=== PATIENT | male | born 1955 | race Caucasian/White ===

== ENCOUNTER 2018-02-08 18:52 | Emergency (ER) | payer MEDICARE, MEDICAID ==
[~2018-02-08] VITALS: Ht 175.3 cm; Wt 115.0 kg
[~2018-02-08 18:52] MED LIST: ACID1TAB7 PO; CEFD300C37 PO; CLON2TAB16 PO; CYAN10005 PO; FLUO40CA2 PO; FLUO60TA PO; FOLI-17 PO; GABA-827 PO; INDO25CA5 PO; LEVO750T26 PO; METR500T PO; METR500T8 PO; MULT1TAB60 PO; OMEP-110 PO; PIMO1TAB PO; PRED10TA PO; SUCR1TAB33 PO; TAMS0.4C2 PO; THIA100T67 PO; VENL75TA PO
[2018-02-08 18:54] VITALS: BP 142/85
[2018-02-08] MEDS ORDERED: PLEASE ENTER HEIGHT AND WEIGHT MC SCH (19:00)
[2018-02-08] MEDS ORDERED: MORPHINE SULFATE 4 MG/ML, 1ML IVPush PRN (19:00)
[2018-02-08] MEDS ORDERED: SODIUM CHLORIDE FLUSH 10ML SYR IVF ONE (19:00)
[2018-02-08] MEDS ORDERED: ONDANSETRON 2MG/ML, 2ML IVPush ONE (19:00)
[2018-02-08] MEDS ORDERED: ONDANSETRON 2MG/ML, 2ML ONE (19:16)
[2018-02-08] MEDS ORDERED: MORPHINE SULFATE 4 MG/ML, 1ML ONE (19:17)
[2018-02-08 19:21] LABS: BASOPHILS # (AUTO) 0.04 x10^3/uL (0-0.1); BASOPHILS % (AUTO) 1 % (0-1); EOSINOPHILS # (AUTO) 0.17 x10^3/uL (0-0.4); EOSINOPHILS % (AUTO) 3 % (1-7); LYMPHOCYTES # (AUTO) 1.91 x10^3/uL (1-3.4); LYMPHOCYTES % (AUTO) 31 % (22-44); MD NO; MEAN CORPUSCULAR HEMOGLOBIN 36.6 pg (27.5-34.5); MEAN CORPUSCULAR HGB CONC 34.3 g/dL (33.2-36.2); MEAN CORPUSCULAR VOLUME 106.7 fL (81-97); MEAN PLATELET VOLUME 7.4 fL (7.4-10.4); MONOCYTES # (AUTO) 0.42 x10^3/uL (0.2-0.8); MONOCYTES % (AUTO) 7 % (2-9); NEUTROPHILS # (AUTO) 3.57 x10^3/uL (1.8-6.8); NEUTROPHILS % (AUTO) 59 % (42-75); PLATELET COUNT 231 x10^3/uL (130-400); RED BLOOD COUNT 3.96 x10^6/uL (4.38-5.82); RED CELL DISTRIBUTION WIDTH 14.8 % (9.4-14.8)
[2018-02-08 19:30] LABS: ALBUMIN 3.5 g/dL (3.4-5.0); ANION GAP 9 mmol/L (5-15); CHLORIDE 104 mmol/L (98-107)
[2018-02-08 19:33] LABS: ALANINE AMINOTRANSFERASE 31 U/L (12-78); ALKALINE PHOSPHATASE 58 U/L (45-117); BILIRUBIN,TOTAL 0.3 mg/dL (0.2-1.0); CREATININE 0.84 mg/dL (0.7-1.3); TOTAL PROTEIN 7.1 g/dL (6.4-8.2)
== END 2018-02-08 20:42 | disposition home or self-care (01) ==
LOC: ED 20:35
DX: K85.00 Idiopathic acute pancreatitis without necrosis or infection (principal); K59.00 Constipation, unspecified; I50.9 Heart failure, unspecified; G89.29 Other chronic pain; F42.8 Other obsessive-compulsive disorder; Z90.89 Acquired absence of other organs; Z90.49 Acquired absence of other specified parts of digestive tract; Z87.891 Personal history of nicotine dependence
CPT/HCPCS: 36415; 74021; 80053; 83605; 83690; 85025; 96374; 96375; 99285; J2405

== ENCOUNTER 2018-02-11 16:32 | Emergency (ER) | payer MEDICARE, MEDICAID ==
[~2018-02-11] VITALS: Ht 180.3 cm; Wt 107.8 kg
[2018-02-11 16:57] LABS: BASOPHILS # (AUTO) 0.02 x10^3/uL (0-0.1); BASOPHILS % (AUTO) 0 % (0-1); EOSINOPHILS # (AUTO) 0.13 x10^3/uL (0-0.4); EOSINOPHILS % (AUTO) 2 % (1-7); LYMPHOCYTES # (AUTO) 1.87 x10^3/uL (1-3.4); LYMPHOCYTES % (AUTO) 30 % (22-44); MD NO; MEAN CORPUSCULAR HEMOGLOBIN 36.2 pg (27.5-34.5); MEAN CORPUSCULAR HGB CONC 34.2 g/dL (33.2-36.2); MEAN CORPUSCULAR VOLUME 105.8 fL (81-97); MEAN PLATELET VOLUME 7.4 fL (7.4-10.4); MONOCYTES # (AUTO) 0.38 x10^3/uL (0.2-0.8); MONOCYTES % (AUTO) 6 % (2-9); NEUTROPHILS % (AUTO) 62 % (42-75); PLATELET COUNT 246 x10^3/uL (130-400); RED BLOOD COUNT 4.11 x10^6/uL (4.38-5.82); RED CELL DISTRIBUTION WIDTH 14.6 % (9.4-14.8)
[2018-02-11 17:17] LABS: ALANINE AMINOTRANSFERASE 35 U/L (12-78); ALBUMIN 3.4 g/dL (3.4-5.0); ANION GAP 8 mmol/L (5-15); CALCIUM 7.9 mg/dL (8.5-10.1); CHLORIDE 106 mmol/L (98-107); CREATININE 0.85 mg/dL (0.7-1.3)
[2018-02-11 17:19] LABS: ALKALINE PHOSPHATASE 67 U/L (45-117); BILIRUBIN,TOTAL 0.2 mg/dL (0.2-1.0); TOTAL PROTEIN 7.2 g/dL (6.4-8.2)
[2018-02-11] MEDS ORDERED: ONDANSETRON ODT 4 MG ONE (19:54)
[2018-02-11] MEDS ORDERED: OXYcodone/APAP 5/325MG TABLET ONE (19:54)
[2018-02-11] MEDS ORDERED: ONDANSETRON ODT 4 MG PO ONE (20:00)
[2018-02-11] MEDS ORDERED: OXYcodone/APAP 5/325MG TABLET PO ONE (20:00)
[2018-02-11 20:21] LABS: MICROSCOPIC NOT IND
[2018-02-11 20:26] LABS: CULTURE INDICATED? NO
[2018-02-11 20:49] VITALS: BP 132/89
== END 2018-02-11 21:05 | disposition home or self-care (01) ==
LOC: ED 20:15
DX: R10.84 Generalized abdominal pain (principal); G89.11 Acute pain due to trauma; G89.29 Other chronic pain; Z90.49 Acquired absence of other specified parts of digestive tract; M19.90 Unspecified osteoarthritis, unspecified site
CPT/HCPCS: 36415; 80053; 81003; 83690; 85025; 99284; Q0162

== ENCOUNTER 2018-03-29 23:57 | Observation (INO) | payer MEDICARE, MEDICAID ==
[~2018-03-29] VITALS: Ht 180.3 cm; Wt 104.0 kg
[~2018-03-29 23:57] MED LIST changes: +CLON0.5T11 PO; +CLON1TAB4 PO; +CLON2TAB9 PO; +FLUO20CA8 PO; +GABA300C10 PO; +GUAN1TAB PO; +IPRA3AMP30 NPPB; +TRAZ-136 PO
[2018-03-30] MEDS ORDERED: LORazepam 1MG TABLET ONE (00:26)
[2018-03-30] MEDS ORDERED: LORazepam 1MG TABLET PO ONE (00:30)
[2018-03-30 00:48] LABS: BASOPHILS # (AUTO) 0.04 x10^3/uL (0-0.1); BASOPHILS % (AUTO) 1 % (0-1); EOSINOPHILS # (AUTO) 0.16 x10^3/uL (0-0.4); EOSINOPHILS % (AUTO) 2 % (1-7); LYMPHOCYTES # (AUTO) 1.68 x10^3/uL (1-3.4); LYMPHOCYTES % (AUTO) 21 % (22-44); MD NO; MEAN CORPUSCULAR HEMOGLOBIN 35.9 pg (27.5-34.5); MEAN CORPUSCULAR HGB CONC 33.7 g/dL (33.2-36.2); MEAN CORPUSCULAR VOLUME 106.5 fL (81-97); MEAN PLATELET VOLUME 7.9 fL (7.4-10.4); MONOCYTES # (AUTO) 0.44 x10^3/uL (0.2-0.8); MONOCYTES % (AUTO) 6 % (2-9); NEUTROPHILS # (AUTO) 5.77 x10^3/uL (1.8-6.8); NEUTROPHILS % (AUTO) 71 % (42-75); PLATELET COUNT 245 x10^3/uL (130-400); RED BLOOD COUNT 4.35 x10^6/uL (4.38-5.82); RED CELL DISTRIBUTION WIDTH 13.2 % (9.4-14.8)
[2018-03-30 00:55] LABS: ALBUMIN 3.4 g/dL (3.4-5.0); ANION GAP 9 mmol/L (5-15); CALCIUM 8.1 mg/dL (8.5-10.1); CHLORIDE 103 mmol/L (98-107)
[2018-03-30 00:59] LABS: ALANINE AMINOTRANSFERASE 35 U/L (12-78); ALKALINE PHOSPHATASE 75 U/L (45-117); BILIRUBIN,TOTAL 0.4 mg/dL (0.2-1.0); CREATININE 0.83 mg/dL (0.7-1.3)
[2018-03-30 01:00] LABS: SALICYLATE LEVEL < 1.7 mg/dL (2.8-20.0)
[2018-03-30 01:01] LABS: ACETAMINOPHEN < 2 mcg/mL (10-30)
[2018-03-30 01:21] LABS: MICROSCOPIC NOT IND
[2018-03-30 01:24] LABS: CULTURE INDICATED? NO
[2018-03-30 01:33] LABS: AMPHETAMINE SCREEN, URINE Negative (Negative); BARBITURATE SCREEN, URINE Negative (Negative); BENZODIAZEPINE SCREEN, URINE Positive (Negative); CANNABINOID SCREEN, URINE Negative (Negative); COCAINE SCREEN, URINE Negative (Negative); METHADONE SCREEN, URINE Negative (Negative); OPIATE SCREEN, URINE Negative (Negative)
[2018-03-30] MEDS ORDERED: LORazepam 1MG TABLET PO PRN (05:30)
[2018-03-30] MEDS ORDERED: ZOLPIDEM 5MG TABLET PO PRN (05:30)
[2018-03-30] MEDS ORDERED: CYCLOBENZAPRINE 10 MG TABLET PO PRN (05:30)
[2018-03-30] MEDS ORDERED: BENZTROPINE 1 MG/ML, 2 ML IM PRN (05:30)
[2018-03-30] MEDS ORDERED: DOCUSATE 100 MG CAPSULE PO PRN (05:30)
[2018-03-30] MEDS ORDERED: ZIPRASIDONE 20 MG INJ IM PRN (05:30)
[2018-03-30] MEDS ORDERED: ONDANSETRON ODT 4 MG PO PRN (05:30)
[2018-03-30] MEDS ORDERED: QUETIAPINE 25MG TABLET PO PRN (05:30)
[2018-03-30] MEDS ORDERED: ACETAMINOPHEN 325 MG TABLET PO PRN (05:30)
[2018-03-30] MEDS ORDERED: TRAZODONE 50MG TABLET PO PRN (05:30)
[2018-03-30] MEDS ORDERED: BENZTROPINE 1 MG TABLET PO PRN (05:30)
[2018-03-30 05:42] VITALS: BP 156/89
[2018-03-30] MEDS ORDERED: METOPROLOL TARTRATE 25 MG TABLET PO SCH (06:30)
[2018-03-30] MEDS ORDERED: ENOXAPARIN 40 MG/0.4 ML SQ SCH (09:00)
[2018-03-30] MEDS ORDERED: PIMOZIDE 1 MG PO SCH (09:00)
[2018-03-30] MEDS ORDERED: FLUOXETINE HCL 20 MG CAPSULE PO SCH (09:00)
[2018-03-30 09:03] VITALS: BP 107/70
== END 2018-03-30 16:19 ==
LOC: ED 23:59 → EDIP 03-30 01:28 → 2N 03-30 05:41
PROVIDERS: ADMIT Internal Medicine; ATTEND Internal Medicine
DX: T14.91XA Suicide attempt, initial encounter (principal); T43.212A Poisoning by selective serotonin and norepinephrine reuptake inhibitors, intentional self-harm, initial encounter; D51.9 Vitamin B12 deficiency anemia, unspecified; D53.9 Nutritional anemia, unspecified; E11.9 Type 2 diabetes mellitus without complications; F33.2 Major depressive disorder, recurrent severe without psychotic features; F95.2 Tourette's disorder; F42.9 Obsessive-compulsive disorder, unspecified; I11.0 Hypertensive heart disease with heart failure; I50.32 Chronic diastolic (congestive) heart failure; G47.33 Obstructive sleep apnea (adult) (pediatric); J44.9 Chronic obstructive pulmonary disease, unspecified; J96.10 Chronic respiratory failure, unspecified whether with hypoxia or hypercapnia; M10.9 Gout, unspecified; Y92.89 Other specified places as the place of occurrence of the external cause; Y93.89 Activity, other specified; Y99.8 Other external cause status; Z99.81 Dependence on supplemental oxygen
CPT/HCPCS: 36415; 71045; 80053; 80307; 80329; 81003; 85025; 93005; 96372; 99285; G0378; J1650; G0480

== ENCOUNTER 2018-06-09 03:29 | Inpatient (IN) | payer MEDICARE, MEDICAID ==
[~2018-06-09] VITALS: Ht 180.3 cm; Wt 105.6 kg
[~2018-06-09 03:29] MED LIST changes: +CLON1TAB11 PO; -CLON1TAB4 PO; +METR-142 PO; -METR500T8 PO; -TRAZ-136 PO; +TRAZ50TA66 PO
[2018-06-09] MEDS ORDERED: ONDANSETRON 2MG/ML, 2ML ONE (03:52)
[2018-06-09] MEDS ORDERED: HYDROmorphone 2 MG/ML, 1ML ONE ×2 (03:53→05:35)
[2018-06-09] MEDS: HYDROmorphone 2 MG/ML, 1ML IVPush PRN ×2 (03:58→05:40)
[2018-06-09] MEDS ORDERED: ONDANSETRON 2MG/ML, 2ML IVPush ONE (04:00)
[2018-06-09 04:15] LABS: ALANINE AMINOTRANSFERASE 31 U/L (12-78); ALBUMIN 3.5 g/dL (3.4-5.0); ANION GAP 8 mmol/L (5-15); CALCIUM 8.3 mg/dL (8.5-10.1); CHLORIDE 105 mmol/L (98-107); CREATININE 0.81 mg/dL (0.7-1.3)
[2018-06-09 04:18] LABS: ALKALINE PHOSPHATASE 74 U/L (45-117); BILIRUBIN,TOTAL 0.4 mg/dL (0.2-1.0); TOTAL PROTEIN 7.2 g/dL (6.4-8.2)
[2018-06-09] MEDS ORDERED: OMNIPAQUE 350 MG/ML, 100ML BOTTLE ONE (04:30)
[2018-06-09 04:31] LABS: BASOPHILS # (AUTO) 0.03 x10^3/uL (0-0.1); BASOPHILS % (AUTO) 0 % (0-1); EOSINOPHILS # (AUTO) 0.11 x10^3/uL (0-0.4); EOSINOPHILS % (AUTO) 1 % (1-7); LYMPHOCYTES # (AUTO) 1.55 x10^3/uL (1-3.4); LYMPHOCYTES % (AUTO) 18 % (22-44); MD NO; MEAN CORPUSCULAR HEMOGLOBIN 35.9 pg (27.5-34.5); MEAN CORPUSCULAR HGB CONC 33.9 g/dL (33.2-36.2); MEAN CORPUSCULAR VOLUME 105.7 fL (81-97); MEAN PLATELET VOLUME 7.8 fL (7.4-10.4); MONOCYTES # (AUTO) 0.48 x10^3/uL (0.2-0.8); MONOCYTES % (AUTO) 6 % (2-9); NEUTROPHILS # (AUTO) 6.23 x10^3/uL (1.8-6.8); NEUTROPHILS % (AUTO) 74 % (42-75); PLATELET COUNT 243 x10^3/uL (130-400); RED BLOOD COUNT 4.23 x10^6/uL (4.38-5.82); RED CELL DISTRIBUTION WIDTH 13.9 % (9.4-14.8)
[2018-06-09 06:19] LABS: MICROSCOPIC NOT IND
[2018-06-09 06:20] LABS: CULTURE INDICATED? NO
[2018-06-09 06:20] LABS: ACETAMINOPHEN < 2 mcg/mL (10-30); SALICYLATE LEVEL < 1.7 mg/dL (2.8-20.0)
[2018-06-09 06:22] LABS: AMPHETAMINE SCREEN, URINE Negative (Negative); BARBITURATE SCREEN, URINE Negative (Negative); BENZODIAZEPINE SCREEN, URINE Negative (Negative); CANNABINOID SCREEN, URINE Negative (Negative); COCAINE SCREEN, URINE Negative (Negative); METHADONE SCREEN, URINE Negative (Negative); OPIATE SCREEN, URINE Positive (Negative)
[2018-06-09 07:12] VITALS: BP 124/80
[2018-06-09] MEDS ORDERED: morphine SULFATE 10 MG/ML, 1ML IVPush PRN (08:30)
[2018-06-09] MEDS ORDERED: ACETAMINOPHEN 325 MG TABLET PO PRN (08:30)
[2018-06-09] MEDS: ENOXAPARIN 40 MG/0.4 ML SQ SCH (09:44)
[2018-06-09] MEDS: POTASSIUM CHLORIDE 20 MEQ, MAGNESIUM SULFATE 2 GM, THIAMINE 200 MG, MVI ADULT 10 ML, FO... IV SCH ×2 (09:44→16:11)
[2018-06-09] MEDS ORDERED: LORazepam 2 MG/ML, 1ML IV PRN ×4 (11:00)
[2018-06-09 12:57] VITALS: BP 103/69
[2018-06-09] MEDS ORDERED: TRAZODONE 50MG TABLET PO PRN (19:00)
[2018-06-09 19:13] VITALS: BP 109/71
[2018-06-10 01:35] VITALS: BP 101/67
[2018-06-10] MEDS ORDERED: POTASSIUM CHLORIDE 20 MEQ, MAGNESIUM SULFATE 2 GM, THIAMINE 200 MG, MVI ADULT 10 ML, FO... IV SCH (04:30)
[2018-06-10 06:00] LABS: BASOPHILS # (AUTO) 0.03 x10^3/uL (0-0.1); BASOPHILS % (AUTO) 0 % (0-1); EOSINOPHILS # (AUTO) 0.13 x10^3/uL (0-0.4); EOSINOPHILS % (AUTO) 2 % (1-7); LYMPHOCYTES # (AUTO) 1.28 x10^3/uL (1-3.4); LYMPHOCYTES % (AUTO) 20 % (22-44); MD NO; MEAN CORPUSCULAR HEMOGLOBIN 36.5 pg (27.5-34.5); MEAN CORPUSCULAR HGB CONC 33.9 g/dL (33.2-36.2); MEAN CORPUSCULAR VOLUME 107.5 fL (81-97); MEAN PLATELET VOLUME 7.7 fL (7.4-10.4); MONOCYTES % (AUTO) 8 % (2-9); NEUTROPHILS # (AUTO) 4.52 x10^3/uL (1.8-6.8); NEUTROPHILS % (AUTO) 70 % (42-75); PLATELET COUNT 209 x10^3/uL (130-400); RED BLOOD COUNT 3.62 x10^6/uL (4.38-5.82); RED CELL DISTRIBUTION WIDTH 14.2 % (9.4-14.8)
[2018-06-10 06:04] LABS: ALANINE AMINOTRANSFERASE 36 U/L (12-78); ANION GAP 9 mmol/L (5-15); CALCIUM 7.6 mg/dL (8.5-10.1); CHLORIDE 108 mmol/L (98-107); CREATININE 1.16 mg/dL (0.7-1.3)
[2018-06-10 06:15] LABS: ALKALINE PHOSPHATASE 69 U/L (45-117); BILIRUBIN,TOTAL 0.4 mg/dL (0.2-1.0); TOTAL PROTEIN 6.2 g/dL (6.4-8.2)
[2018-06-10 08:10] VITALS: BP 105/64
[2018-06-10] MEDS ORDERED: FLUOXETINE HCL 20 MG CAPSULE PO SCH (09:00)
[2018-06-10] MEDS ORDERED: CHOLECALCIFEROL 1,000 UNIT TABLET PO SCH (09:00)
[2018-06-10] MEDS: ENOXAPARIN 40 MG/0.4 ML SQ SCH (09:06)
[2018-06-10] MEDS ORDERED: CYAN1TAB29 PO (12:14)
[2018-06-10] MEDS ORDERED: CHOL500050 PO (12:14)
[2018-06-10] MEDS ORDERED: CLON2TAB9 PO (12:14)
[2018-06-10 13:59] VITALS: BP 115/75
[2018-06-15] MEDS ORDERED: PIMO1TAB PO (13:24)
[2018-06-15] MEDS ORDERED: FLUO40CA9 PO (13:24)
[2018-06-15] MEDS ORDERED: CLON2TAB9 PO (13:24)
== END 2018-06-10 15:42 | disposition home or self-care (01) | DRG 392 ==
LOC: ED 04:43 → EDIP 06:01 → 3NE 06:57
PROVIDERS: ADMIT Internal Medicine; ATTEND Internal Medicine
DX: A08.4 Viral intestinal infection, unspecified (principal); J98.11 Atelectasis; I50.32 Chronic diastolic (congestive) heart failure; J96.10 Chronic respiratory failure, unspecified whether with hypoxia or hypercapnia; R45.851 Suicidal ideations; G89.29 Other chronic pain; F32.9 Major depressive disorder, single episode, unspecified; G47.33 Obstructive sleep apnea (adult) (pediatric); J44.9 Chronic obstructive pulmonary disease, unspecified; Z91.14 Patient's other noncompliance with medication regimen; K43.9 Ventral hernia without obstruction or gangrene; Z91.5 Personal history of self-harm; Z90.49 Acquired absence of other specified parts of digestive tract; Z85.048 Personal history of other malignant neoplasm of rectum, rectosigmoid junction, and anus; E11.9 Type 2 diabetes mellitus without complications; E66.9 Obesity, unspecified; Z68.32 Body mass index [BMI] 32.0-32.9, adult; F42.9 Obsessive-compulsive disorder, unspecified; F95.2 Tourette's disorder; I11.0 Hypertensive heart disease with heart failure; M10.9 Gout, unspecified
CPT/HCPCS: 36415; 71045; 74177; 80053; 80307; 80329; 81003; 82306; 82607; 83605; 83690; 83735; 84443; 85025; 93005; 96374; 96375; 96376; 99285; G0378; J1170; J1650; J2405; J3411; J3475; J3480; J7042; Q9967; G0480; J2060; J2270

== ENCOUNTER 2019-02-04 16:10 | Inpatient (IN) | payer MEDICARE, MEDICAID ==
[~2019-02-04] VITALS: Ht 180.3 cm; Wt 87.9 kg
[2019-02-06 07:10] VITALS: BP 101/65
== END 2019-02-06 15:47 | disposition home or self-care (01) | DRG 885 ==
LOC: 3E 16:38
PROVIDERS: ADMIT Psychiatry & Neurology Psychosomatic Medicine; ATTEND Psychiatry & Neurology Psychosomatic Medicine
DX: F33.2 Major depressive disorder, recurrent severe without psychotic features (principal); R45.851 Suicidal ideations; G89.4 Chronic pain syndrome; F41.1 Generalized anxiety disorder; F42.9 Obsessive-compulsive disorder, unspecified; E53.8 Deficiency of other specified B group vitamins; M10.9 Gout, unspecified; F22 Delusional disorders; R09.02 Hypoxemia; F10.20 Alcohol dependence, uncomplicated; R00.0 Tachycardia, unspecified; E66.9 Obesity, unspecified; Z90.49 Acquired absence of other specified parts of digestive tract; Z83.3 Family history of diabetes mellitus; Z82.0 Family history of epilepsy and other diseases of the nervous system; Z68.27 Body mass index [BMI] 27.0-27.9, adult; Z79.899 Other long term (current) drug therapy; Z88.6 Allergy status to analgesic agent; Z88.8 Allergy status to other drugs, medicaments and biological substances
CPT/HCPCS: 36415; 71045; 74018; 80048; 80053; 80061; 81001; 82140; 82607; 84439; 84443; 85025; 86592; 87086; 93005; J3420

== ENCOUNTER 2019-02-06 13:58 | Inpatient (IN) | payer MEDICARE, MEDICAID ==
[~2019-02-06] VITALS: Ht 180.3 cm; Wt 108.0 kg
[2019-02-11 12:01] VITALS: BP 113/77
== END 2019-02-11 12:00 | DRG 881 ==
LOC: 4NOR 15:45
PROVIDERS: ADMIT Family Medicine; ATTEND Family Medicine
DX: F32.9 Major depressive disorder, single episode, unspecified (principal); R45.851 Suicidal ideations; D53.9 Nutritional anemia, unspecified; E86.0 Dehydration; G89.29 Other chronic pain; K59.00 Constipation, unspecified
CPT/HCPCS: 36415; 74177; 80053; 81003; 83690; 85025; G0378; J2405; Q9967; J2270; J7040

== ENCOUNTER 2019-02-11 11:08 | Inpatient (IN) | payer MEDICARE, MEDICAID ==
[~2019-02-11] VITALS: Ht 180.3 cm; Wt 101.7 kg
[2019-02-16 07:50] VITALS: BP 115/74
== END 2019-02-16 17:00 | disposition home or self-care (01) | DRG 885 ==
LOC: 3E 12:20
PROVIDERS: ADMIT Psychiatry & Neurology Psychosomatic Medicine; ATTEND Psychiatry & Neurology Psychosomatic Medicine
DX: F33.2 Major depressive disorder, recurrent severe without psychotic features (principal); R45.851 Suicidal ideations; F23 Brief psychotic disorder; F42.9 Obsessive-compulsive disorder, unspecified; Z88.8 Allergy status to other drugs, medicaments and biological substances; D53.9 Nutritional anemia, unspecified; E53.8 Deficiency of other specified B group vitamins; F41.1 Generalized anxiety disorder; G89.29 Other chronic pain; K59.00 Constipation, unspecified; Z79.899 Other long term (current) drug therapy; Z90.49 Acquired absence of other specified parts of digestive tract; Z83.3 Family history of diabetes mellitus; Z82.0 Family history of epilepsy and other diseases of the nervous system
CPT/HCPCS: 93005

== ENCOUNTER 2019-08-04 21:32 | Inpatient (IN) | payer MEDICARE, MEDICAID ==
[~2019-08-04] VITALS: Ht 175.3 cm; Wt 96.4 kg
[~2019-08-04 21:32] MED LIST changes: +ACAM333T7 PO; +CHOL500050 PO; +CLON-364 PO; -CLON0.5T11 PO; +CYAN-27 PO; -CYAN10005 PO; +CYAN1TAB29 PO; +FLUO20CA23 PO; -FLUO20CA8 PO; +FLUO40CA9 PO; +INDO25CA22 PO; -INDO25CA5 PO; -METR-142 PO; +METR-90 PO; +OLAN5TAB3 PO; +OLAN5TAB9 PO; +ONDA4TAB7 PO; +POLY17PO5 PO
[2019-08-04] MEDS ORDERED: ONDANSETRON 2MG/ML, 2ML IVPush ONE (22:30)
[2019-08-04] MEDS ORDERED: MORPHINE SULFATE 4 MG/ML, 1ML IVPush PRN (22:30)
[2019-08-04 22:35] LABS: BASOPHILS # (AUTO) 0.02 x10^3/uL (0-0.1); BASOPHILS % (AUTO) 0 % (0-1); EOSINOPHILS # (AUTO) 0.12 x10^3/uL (0-0.4); EOSINOPHILS % (AUTO) 2 % (1-7); LYMPHOCYTES # (AUTO) 1.24 x10^3/uL (1-3.4); LYMPHOCYTES % (AUTO) 22 % (22-44); MD NO; MEAN CORPUSCULAR HEMOGLOBIN 35.1 pg (27.5-34.5); MEAN CORPUSCULAR HGB CONC 33.3 g/dL (33.2-36.2); MEAN CORPUSCULAR VOLUME 105.3 fL (81-97); MEAN PLATELET VOLUME 7.7 fL (7.4-10.4); MONOCYTES # (AUTO) 0.51 x10^3/uL (0.2-0.8); MONOCYTES % (AUTO) 9 % (2-9); NEUTROPHILS # (AUTO) 3.75 x10^3/uL (1.8-6.8); NEUTROPHILS % (AUTO) 67 % (42-75); PLATELET COUNT 239 x10^3/uL (130-400); RED BLOOD COUNT 3.71 x10^6/uL (4.38-5.82); RED CELL DISTRIBUTION WIDTH 15.2 % (9.4-14.8)
[2019-08-04 22:43] LABS: ALBUMIN 3.3 g/dL (3.4-5.0); ANION GAP 5 mmol/L (5-15); CALCIUM 8.4 mg/dL (8.5-10.1); CHLORIDE 108 mmol/L (98-107)
[2019-08-04 22:48] LABS: ALANINE AMINOTRANSFERASE 53 U/L (12-78); ALKALINE PHOSPHATASE 72 U/L (45-117); BILIRUBIN,TOTAL 0.6 mg/dL (0.2-1.0); CREATININE 0.81 mg/dL (0.7-1.3); TOTAL PROTEIN 6.7 g/dL (6.4-8.2)
[2019-08-04] MEDS ORDERED: ONDANSETRON 2MG/ML, 2ML ONE (23:01)
[2019-08-04] MEDS ORDERED: MORPHINE SULFATE 4 MG/ML, 1ML ONE (23:01)
[2019-08-04] MEDS ORDERED: OMNIPAQUE 350 MG/ML, 100ML BOTTLE ONE (23:13)
[2019-08-05] MEDS ORDERED: SODIUM CHLORIDE 0.9% 1,000 ML IV ONE (00:33)
[2019-08-05] MEDS ORDERED: MORPHINE SULFATE 4 MG/ML, 1ML IVPush PRN (01:00)
[2019-08-05] MEDS ORDERED: ONDANSETRON 2MG/ML, 2ML IVPush PRN ×2 (01:00→01:30)
[2019-08-05] MEDS ORDERED: FLUO20CA19 PO (01:26)
[2019-08-05] MEDS ORDERED: OLAN10TA9 PO (01:28)
[2019-08-05] MEDS ORDERED: POLYETHYLENE GLYCOL 17 GM PACKET PO PRN (01:30)
[2019-08-05] MEDS ORDERED: ONDANSETRON ODT 4 MG PO PRN (01:30)
[2019-08-05] MEDS ORDERED: PROMETHAZINE 25 MG/ML, 1ML IM PRN (01:30)
[2019-08-05] MEDS ORDERED: hydrALAzine 20 MG/ML, 1ML IVPush PRN (01:30)
[2019-08-05 01:54] LABS: FREE T4 (FREE THYROXINE) 0.86 ng/dL (0.76-1.46)
[2019-08-05 02:00] VITALS: BP 110/55
[2019-08-05] MEDS: HEPARIN 5,000 UNITS/ML, 1ML SQ SCH ×3 (02:05→17:30)
[2019-08-05] MEDS: LACTATED RINGERS 1,000 ML IV SCH ×2 (02:06→11:24)
[2019-08-05 02:12] LABS: MICROSCOPIC NOT IND
[2019-08-05 02:15] LABS: CULTURE INDICATED? NO
[2019-08-05] MEDS: OLANZAPINE 10 MG TABLET PO SCH ×2 (02:55→08:48)
[2019-08-05] MEDS: OXYcodone IR 5MG TABLET PO PRN ×3 (02:59→19:52)
[2019-08-05 07:55] VITALS: BP 116/62
[2019-08-05 08:09] VITALS: BP 86/55
[2019-08-05 08:45] LABS: CHOLESTEROL, TOTAL 173 mg/dL (140-239)
[2019-08-05 08:47] LABS: CHOL/HDL RATIO 3.9; HDL CHOL % 25 % (26-37); HDL CHOLESTEROL (DIRECT) 44 mg/dL (40-60); LDL CHOLESTEROL,CALCULATED 106 mg/dL (54-169); LDL/HDL RATIO 2.4 (0.5-3.0); TRIGLYCERIDES 115 mg/dL (50-200); VLDL CHOLESTEROL 23 mg/dL (0-25)
[2019-08-05] MEDS: FLUOXETINE HCL 20 MG CAPSULE PO SCH (09:02)
[2019-08-05] MEDS: SENNA/DOCUSATE TABLET PO SCH (09:03)
[2019-08-05] MEDS: morphine SULFATE 10 MG/ML, 1ML IVPush PRN (11:24)
[2019-08-05 12:49] VITALS: BP 121/70
[2019-08-05] MEDS: SODIUM CHLORIDE 0.9% 1,000 ML IV SCH ×2 (12:50→13:56)
[2019-08-05 18:34] VITALS: BP 128/79
[2019-08-06] MEDS: OXYcodone IR 5MG TABLET PO PRN ×2 (00:25→05:19)
[2019-08-06] MEDS: HEPARIN 5,000 UNITS/ML, 1ML SQ SCH ×3 (01:11→13:03)
[2019-08-06 02:16] VITALS: BP 119/76
[2019-08-06] MEDS: LACTATED RINGERS 1,000 ML IV SCH (05:14)
[2019-08-06 05:27] LABS: BASOPHILS # (AUTO) 0.02 x10^3/uL (0-0.1); BASOPHILS % (AUTO) 0 % (0-1); EOSINOPHILS # (AUTO) 0.22 x10^3/uL (0-0.4); EOSINOPHILS % (AUTO) 5 % (1-7); LYMPHOCYTES # (AUTO) 1.09 x10^3/uL (1-3.4); LYMPHOCYTES % (AUTO) 24 % (22-44); MD NO; MEAN CORPUSCULAR HEMOGLOBIN 34.9 pg (27.5-34.5); MEAN CORPUSCULAR HGB CONC 32.9 g/dL (33.2-36.2); MEAN CORPUSCULAR VOLUME 106.2 fL (81-97); MONOCYTES # (AUTO) 0.38 x10^3/uL (0.2-0.8); MONOCYTES % (AUTO) 8 % (2-9); NEUTROPHILS # (AUTO) 2.86 x10^3/uL (1.8-6.8); NEUTROPHILS % (AUTO) 63 % (42-75); PLATELET COUNT 196 x10^3/uL (130-400); RED BLOOD COUNT 3.29 x10^6/uL (4.38-5.82); RED CELL DISTRIBUTION WIDTH 15.5 % (9.4-14.8)
[2019-08-06 05:33] LABS: ALBUMIN 2.9 g/dL (3.4-5.0); ANION GAP 5 mmol/L (5-15); CALCIUM 8.1 mg/dL (8.5-10.1); CHLORIDE 104 mmol/L (98-107)
[2019-08-06 05:36] LABS: ALANINE AMINOTRANSFERASE 45 U/L (12-78); ALKALINE PHOSPHATASE 73 U/L (45-117); BILIRUBIN,TOTAL 0.3 mg/dL (0.2-1.0); CREATININE 0.81 mg/dL (0.7-1.3); TOTAL PROTEIN 5.8 g/dL (6.4-8.2)
[2019-08-06 07:10] VITALS: BP 116/73
[2019-08-06] MEDS: OLANZAPINE 10 MG TABLET PO SCH (07:11)
[2019-08-06] MEDS: FLUOXETINE HCL 20 MG CAPSULE PO SCH (08:23)
[2019-08-06] MEDS: SENNA/DOCUSATE TABLET PO SCH (08:23)
[2019-08-06] MEDS: morphine SULFATE 10 MG/ML, 1ML IVPush PRN ×3 (08:47→20:38)
[2019-08-06 12:49] VITALS: BP 124/82
[2019-08-06 21:00] VITALS: BP 124/74
[2019-08-07 00:20] VITALS: BP 119/66
[2019-08-07] MEDS: HEPARIN 5,000 UNITS/ML, 1ML SQ SCH ×3 (01:30→17:32)
[2019-08-07] MEDS: morphine SULFATE 10 MG/ML, 1ML IVPush PRN ×2 (01:51→08:32)
[2019-08-07] MEDS: LORazepam 2 MG/ML, 1ML IVPush PRN ×4 (02:30→23:30)
[2019-08-07 05:01] LABS: BASOPHILS % (AUTO) 0 % (0-1); EOSINOPHILS % (AUTO) 2 % (1-7); LYMPHOCYTES # (AUTO) 1.03 x10^3/uL (1-3.4); LYMPHOCYTES % (AUTO) 16 % (22-44); MD NO; MEAN CORPUSCULAR HGB CONC 33.3 g/dL (33.2-36.2); MEAN CORPUSCULAR VOLUME 105.2 fL (81-97); MEAN PLATELET VOLUME 8.1 fL (7.4-10.4); MONOCYTES # (AUTO) 0.42 x10^3/uL (0.2-0.8); MONOCYTES % (AUTO) 7 % (2-9); NEUTROPHILS # (AUTO) 4.89 x10^3/uL (1.8-6.8); NEUTROPHILS % (AUTO) 76 % (42-75); PLATELET COUNT 232 x10^3/uL (130-400); RED BLOOD COUNT 3.63 x10^6/uL (4.38-5.82); RED CELL DISTRIBUTION WIDTH 14.9 % (9.4-14.8)
[2019-08-07 05:10] LABS: ALANINE AMINOTRANSFERASE 42 U/L (12-78); ALBUMIN 3.3 g/dL (3.4-5.0); ANION GAP 6 mmol/L (5-15); CALCIUM 8.6 mg/dL (8.5-10.1); CHLORIDE 103 mmol/L (98-107)
[2019-08-07 05:13] LABS: ALKALINE PHOSPHATASE 83 U/L (45-117); BILIRUBIN,TOTAL 0.6 mg/dL (0.2-1.0); CREATININE 0.78 mg/dL (0.7-1.3); TOTAL PROTEIN 6.9 g/dL (6.4-8.2)
[2019-08-07] MEDS: FLUOXETINE HCL 20 MG CAPSULE PO SCH (07:17)
[2019-08-07] MEDS: SENNA/DOCUSATE TABLET PO SCH (07:17)
[2019-08-07] MEDS: OLANZAPINE 10 MG TABLET PO SCH (07:18)
[2019-08-07 07:48] VITALS: BP 123/82
[2019-08-07] MEDS: SODIUM CHLORIDE 0.9% 1,000 ML IV SCH ×2 (09:47→19:32)
[2019-08-07 12:27] VITALS: BP 137/75
[2019-08-07 19:03] VITALS: BP 107/71
[2019-08-08 00:06] VITALS: BP 141/79
[2019-08-08] MEDS: HEPARIN 5,000 UNITS/ML, 1ML SQ SCH ×3 (01:30→17:01)
[2019-08-08 05:17] LABS: ANION GAP 8 mmol/L (5-15); CALCIUM 8.2 mg/dL (8.5-10.1); CHLORIDE 104 mmol/L (98-107)
[2019-08-08 05:20] LABS: BASOPHILS # (AUTO) 0.01 x10^3/uL (0-0.1); BASOPHILS % (AUTO) 0 % (0-1); EOSINOPHILS # (AUTO) 0.06 x10^3/uL (0-0.4); EOSINOPHILS % (AUTO) 1 % (1-7); LYMPHOCYTES # (AUTO) 0.83 x10^3/uL (1-3.4); LYMPHOCYTES % (AUTO) 14 % (22-44); MD NO; MEAN CORPUSCULAR HEMOGLOBIN 34.8 pg (27.5-34.5); MEAN CORPUSCULAR HGB CONC 32.8 g/dL (33.2-36.2); MEAN CORPUSCULAR VOLUME 106.2 fL (81-97); MEAN PLATELET VOLUME 8.3 fL (7.4-10.4); MONOCYTES # (AUTO) 0.43 x10^3/uL (0.2-0.8); MONOCYTES % (AUTO) 7 % (2-9); NEUTROPHILS # (AUTO) 4.68 x10^3/uL (1.8-6.8); NEUTROPHILS % (AUTO) 78 % (42-75); PLATELET COUNT 214 x10^3/uL (130-400); RED CELL DISTRIBUTION WIDTH 15.3 % (9.4-14.8)
[2019-08-08 05:22] LABS: ALANINE AMINOTRANSFERASE 31 U/L (12-78); ALKALINE PHOSPHATASE 76 U/L (45-117); BILIRUBIN,TOTAL 0.5 mg/dL (0.2-1.0); CREATININE 0.73 mg/dL (0.7-1.3); TOTAL PROTEIN 6.2 g/dL (6.4-8.2)
[2019-08-08] MEDS: SODIUM CHLORIDE 0.9% 1,000 ML IV SCH ×3 (05:26→17:08)
[2019-08-08 07:00] VITALS: BP 155/82
[2019-08-08] MEDS: FLUOXETINE HCL 20 MG CAPSULE PO SCH (08:49)
[2019-08-08] MEDS: OLANZAPINE 10 MG TABLET PO SCH (08:49)
[2019-08-08] MEDS: SENNA/DOCUSATE TABLET PO SCH (08:49)
[2019-08-08] MEDS: LORazepam 2 MG/ML, 1ML IVPush PRN ×3 (09:51→20:34)
[2019-08-08 12:15] VITALS: BP 138/83
[2019-08-08] MEDS: morphine SULFATE 10 MG/ML, 1ML IVPush PRN ×2 (14:16→14:47)
[2019-08-08 19:53] VITALS: BP 123/75
[2019-08-09] MEDS: LORazepam 2 MG/ML, 1ML IVPush PRN ×3 (00:23→19:39)
[2019-08-09] MEDS: HEPARIN 5,000 UNITS/ML, 1ML SQ SCH ×3 (01:30→16:28)
[2019-08-09 02:05] VITALS: BP 126/70
[2019-08-09 05:45] LABS: BASOPHILS # (AUTO) 0.02 x10^3/uL (0-0.1); BASOPHILS % (AUTO) 0 % (0-1); EOSINOPHILS # (AUTO) 0.07 x10^3/uL (0-0.4); EOSINOPHILS % (AUTO) 1 % (1-7); LYMPHOCYTES # (AUTO) 1.09 x10^3/uL (1-3.4); LYMPHOCYTES % (AUTO) 18 % (22-44); MD NO; MEAN CORPUSCULAR HEMOGLOBIN 35.1 pg (27.5-34.5); MEAN CORPUSCULAR HGB CONC 33.2 g/dL (33.2-36.2); MEAN CORPUSCULAR VOLUME 105.9 fL (81-97); MEAN PLATELET VOLUME 8.4 fL (7.4-10.4); MONOCYTES # (AUTO) 0.44 x10^3/uL (0.2-0.8); MONOCYTES % (AUTO) 7 % (2-9); NEUTROPHILS % (AUTO) 73 % (42-75); PLATELET COUNT 239 x10^3/uL (130-400); RED BLOOD COUNT 3.23 x10^6/uL (4.38-5.82); RED CELL DISTRIBUTION WIDTH 15.2 % (9.4-14.8)
[2019-08-09 06:04] LABS: ANION GAP 7 mmol/L (5-15); CALCIUM 8.2 mg/dL (8.5-10.1); CHLORIDE 107 mmol/L (98-107); CREATININE 0.69 mg/dL (0.7-1.3)
[2019-08-09 07:05] VITALS: BP 162/92
[2019-08-09] MEDS: FLUOXETINE HCL 20 MG CAPSULE PO SCH (07:35)
[2019-08-09] MEDS: OLANZAPINE 10 MG TABLET PO SCH (07:36)
[2019-08-09] MEDS: SENNA/DOCUSATE TABLET PO SCH (07:36)
[2019-08-09] MEDS ORDERED: SODIUM CHLORIDE 0.9% 1,000 ML IV SCH (09:30)
[2019-08-09 12:25] VITALS: BP 117/76
[2019-08-09] MEDS: D5%-0.9% NACL 1,000 ML IV SCH (16:29)
[2019-08-09 18:46] VITALS: BP 115/69
[2019-08-10] MEDS: D5%-0.9% NACL 1,000 ML IV SCH (01:30)
[2019-08-10] MEDS: HEPARIN 5,000 UNITS/ML, 1ML SQ SCH ×2 (01:30→07:44)
[2019-08-10 03:36] VITALS: BP 130/71
[2019-08-10 05:50] LABS: ANION GAP 4 mmol/L (5-15); CALCIUM 8.2 mg/dL (8.5-10.1); CHLORIDE 105 mmol/L (98-107)
[2019-08-10 05:51] LABS: CREATININE 0.64 mg/dL (0.7-1.3)
[2019-08-10 06:45] VITALS: BP 126/74
[2019-08-10] MEDS ORDERED: D5%-0.9% NACL 1,000 ML IV SCH (07:30)
[2019-08-10] MEDS ORDERED: POTASSIUM CHLORIDE 20 MEQ TAB.ER.PRT PO ONE (07:30)
[2019-08-10] MEDS: FLUOXETINE HCL 20 MG CAPSULE PO SCH (07:44)
[2019-08-10] MEDS: SENNA/DOCUSATE TABLET PO SCH (07:44)
[2019-08-10] MEDS ORDERED: OLANZAPINE 10 MG TABLET PO SCH (08:00)
[2019-08-10] MEDS ORDERED: FLUOXETINE HCL 20 MG CAPSULE PO SCH (09:00)
[2019-08-10] MEDS ORDERED: INDOMETHACIN 50 MG CAPSULE PO SCH (12:30)
[2019-08-10 12:47] VITALS: BP 117/65
== END 2019-08-10 13:00 | disposition left against medical advice (07) | DRG 438 ==
LOC: ED 08-05 00:57 → EDIP 08-05 01:20 → 3N 08-05 01:45
PROVIDERS: ADMIT Internal Medicine; ATTEND Internal Medicine
DX: K85.90 Acute pancreatitis without necrosis or infection, unspecified (principal); J96.01 Acute respiratory failure with hypoxia; K56.7 Ileus, unspecified; R45.851 Suicidal ideations; F10.10 Alcohol abuse, uncomplicated; Z53.29 Procedure and treatment not carried out because of patient's decision for other reasons; Z88.8 Allergy status to other drugs, medicaments and biological substances; D53.9 Nutritional anemia, unspecified; E87.6 Hypokalemia; F32.9 Major depressive disorder, single episode, unspecified; F41.1 Generalized anxiety disorder; F42.9 Obsessive-compulsive disorder, unspecified; G47.33 Obstructive sleep apnea (adult) (pediatric); I27.20 Pulmonary hypertension, unspecified; I50.9 Heart failure, unspecified; M10.9 Gout, unspecified; J44.9 Chronic obstructive pulmonary disease, unspecified
CPT/HCPCS: 36415; 74018; 74177; 76700; 80048; 80053; 80061; 80307; 81003; 83036; 83690; 83735; 84100; 84439; 84443; 85025; 96374; 96375; 99285; G0378; J1644; J2405; J7042; Q9967; J2060; J2270; J7030; J7120

== ENCOUNTER 2019-08-12 20:53 | Emergency (ER) | payer MEDICARE, MEDICAID ==
[~2019-08-12] VITALS: Ht 180.3 cm; Wt 86.3 kg
[~2019-08-12 20:53] MED LIST changes: +FLUO20CA19 PO; +OLAN10TA9 PO
[2019-08-12 22:42] LABS: BASOPHILS # (AUTO) 0.02 x10^3/uL (0-0.1); BASOPHILS % (AUTO) 0 % (0-1); EOSINOPHILS # (AUTO) 0.08 x10^3/uL (0-0.4); EOSINOPHILS % (AUTO) 1 % (1-7); LYMPHOCYTES # (AUTO) 1.53 x10^3/uL (1-3.4); LYMPHOCYTES % (AUTO) 27 % (22-44); MD NO; MEAN CORPUSCULAR HEMOGLOBIN 35.2 pg (27.5-34.5); MEAN CORPUSCULAR HGB CONC 33.4 g/dL (33.2-36.2); MEAN CORPUSCULAR VOLUME 105.4 fL (81-97); MEAN PLATELET VOLUME 7.9 fL (7.4-10.4); MONOCYTES # (AUTO) 0.47 x10^3/uL (0.2-0.8); MONOCYTES % (AUTO) 8 % (2-9); NEUTROPHILS # (AUTO) 3.64 x10^3/uL (1.8-6.8); NEUTROPHILS % (AUTO) 64 % (42-75); PLATELET COUNT 292 x10^3/uL (130-400); RED BLOOD COUNT 3.74 x10^6/uL (4.38-5.82); RED CELL DISTRIBUTION WIDTH 15.5 % (9.4-14.8)
[2019-08-12 22:47] LABS: ALANINE AMINOTRANSFERASE 27 U/L (12-78); ALBUMIN 3.4 g/dL (3.4-5.0); ANION GAP 7 mmol/L (5-15); CALCIUM 8.6 mg/dL (8.5-10.1); CHLORIDE 105 mmol/L (98-107); CREATININE 0.82 mg/dL (0.7-1.3)
[2019-08-12 22:48] LABS: SALICYLATE LEVEL < 1.7 mg/dL (2.8-20.0)
[2019-08-12 22:50] LABS: ALKALINE PHOSPHATASE 82 U/L (45-117); BILIRUBIN,TOTAL 0.5 mg/dL (0.2-1.0); TOTAL PROTEIN 6.9 g/dL (6.4-8.2)
--- NOTE | 2019-08-12 22:59 | NUR ---
TP RN: TELEPSYCH CONSULT INITIATED
[2019-08-12 23:03] LABS: MICROSCOPIC NOT IND
[2019-08-12 23:05] LABS: CULTURE INDICATED? NO
[2019-08-12 23:14] LABS: AMPHETAMINE SCREEN, URINE Negative (Negative); BARBITURATE SCREEN, URINE Negative (Negative); BENZODIAZEPINE SCREEN, URINE Negative (Negative); CANNABINOID SCREEN, URINE Negative (Negative); COCAINE SCREEN, URINE Negative (Negative); METHADONE SCREEN, URINE Negative (Negative); OPIATE SCREEN, URINE Negative (Negative)
--- NOTE | 2019-08-12 23:36 | NUR ---
Repeat VS done. Pt found to have SpO2 of 90% at room air. 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 Pt placed on 2 lpm NC. Pt states "I just want to go home and sleep" and "I had to hurt myself to get someone to care". Pt goes on to state he has never been and feels he has no one in his life right now.
[2019-08-13] MEDS ORDERED: IBUPROFEN 800 MG TABLET ONE (00:27)
[2019-08-13] MEDS ORDERED: IBUPROFEN 800 MG TABLET PO ONE (00:30)
--- NOTE | 2019-08-13 00:31 | NUR ---
PT. CONTINUES TO C/O ABD PAIN AND IS REQUESTING PAIN MEDS. DR. EHSTER UPDATED AND NEW ORDERS RECEIVED FOR 800MG IBUPROFEN PO. PT. MEDICATED AT THIS TIME. CALOS AND BIBIANA ALSO PROVIDED TO PT. PT. DENIES OTHER NEEDS. AWAITING TELEPSYCH EVAL.
--- NOTE | 2019-08-13 00:43 | NUR ---
REPORT GIVEN TO SOC MD. BOT IN ROOM; PT. BEING EVALUTATED BY TELEPSYCH MD NOW.
--- NOTE | 2019-08-13 01:11 | NUR ---
Pt up to restroom after Telehealth interview completed.
--- NOTE | 2019-08-13 03:07 | NUR ---
SPOKE TO BHAVESH BROWNING IN 3E. THEY DO NOT HAVE A ADOBE FLEX DEVELOPER IN HOUSE TO APPROVE THE ADMIT.
--- NOTE | 2019-08-13 03:10 | NUR ---
PT. WITH MEDICARE INSURANCE: PACKET FAXED TO [facility], [facility], [facility].
[2019-08-13 03:11] VITALS: BP 95/67
--- NOTE | 2019-08-13 04:33 | NUR ---
REPORT CALLED TO EDE AT [facility].
--- NOTE | 2019-08-13 04:52 | NUR ---
LATE ENTRY: GRACE FROM [facility] CALLED AND DR. ARCINIEGA WILL BE ACCEPTING THIS PT. TRANSPORT BEING SET UP VIA [facility] FOR 729 REQUESTED BY DOMINIQUE BESSEMER.
--- NOTE | 2019-08-13 06:59 | NUR ---
REC BS REPORT PT RESTING SITTER IN THE TALLEY WATCHING THE PT PT TO BE TRANS BY KY[place] AT 730 THIS AM
== END 2019-08-13 07:46 ==
LOC: ED 21:51
DX: F32.3 Major depressive disorder, single episode, severe with psychotic features (principal); T43.592A Poisoning by other antipsychotics and neuroleptics, intentional self-harm, initial encounter; F95.2 Tourette's disorder
CPT/HCPCS: 36415; 74021; 80053; 80307; 81003; 83690; 85025; 99284

== ENCOUNTER 2019-11-22 17:41 | Inpatient (IN) | payer MEDICARE, MEDICAID ==
[~2019-11-22] VITALS: Ht 175.3 cm; Wt 103.1 kg
[2019-11-22] MEDS ORDERED: OLANZAPINE 5 MG TABLET PO PRN (19:30)
[2019-11-22] MEDS ORDERED: BISACODYL 10 MG SUPP PR PRN (19:30)
[2019-11-22] MEDS ORDERED: POLYETHYLENE GLYCOL 17 GM PACKET PO PRN (19:30)
[2019-11-22] MEDS ORDERED: LORazepam 1MG TABLET PO PRN (19:30)
[2019-11-22] MEDS ORDERED: ONDANSETRON ODT 4 MG PO PRN ×2 (19:30→21:30)
[2019-11-22] MEDS ORDERED: PLEASE ENTER HEIGHT AND WEIGHT MC SCH (20:00)
[2019-11-22] MEDS ORDERED: POLYETHYLENE GLYCOL 17 GM PACKET PO ONE (21:30)
[2019-11-22 21:31] VITALS: BP 105/71
[2019-11-22 21:46] VITALS: BP 105/71
[2019-11-23 02:13] LABS: MICROSCOPIC NOT IND
[2019-11-23 07:10] VITALS: BP 119/77
[2019-11-23] MEDS: OLANZAPINE 10 MG TABLET PO SCH (08:48)
[2019-11-23] MEDS: ACAMPROSATE 333 MG TABLET.DR PO SCH ×4 (08:48→20:29)
[2019-11-23] MEDS: FLUOXETINE HCL 20 MG CAPSULE PO SCH (08:50)
[2019-11-23 10:00] LABS: BASOPHILS # (AUTO) 0.02 x10^3/uL (0-0.1); BASOPHILS % (AUTO) 0 % (0-1); EOSINOPHILS # (AUTO) 0.12 x10^3/uL (0-0.4); EOSINOPHILS % (AUTO) 2 % (1-7); LYMPHOCYTES # (AUTO) 1.16 x10^3/uL (1-3.4); LYMPHOCYTES % (AUTO) 21 % (22-44); MD NO; MEAN CORPUSCULAR HEMOGLOBIN 34.2 pg (27.5-34.5); MEAN CORPUSCULAR HGB CONC 33.7 g/dL (33.2-36.2); MEAN CORPUSCULAR VOLUME 101.5 fL (81-97); MONOCYTES # (AUTO) 0.43 x10^3/uL (0.2-0.8); MONOCYTES % (AUTO) 8 % (2-9); NEUTROPHILS # (AUTO) 3.89 x10^3/uL (1.8-6.8); NEUTROPHILS % (AUTO) 69 % (42-75); PLATELET COUNT 195 x10^3/uL (130-400); RED BLOOD COUNT 4.06 x10^6/uL (4.38-5.82); RED CELL DISTRIBUTION WIDTH 13.4 % (9.4-14.8)
[2019-11-23 10:03] LABS: ALANINE AMINOTRANSFERASE 29 U/L (12-78); ALBUMIN 3.4 g/dL (3.4-5.0); ANION GAP 7 mmol/L (5-15); CALCIUM 8.5 mg/dL (8.5-10.1); CHLORIDE 106 mmol/L (98-107)
[2019-11-23 10:24] LABS: BILIRUBIN, DIRECT < 0.1 mg/dL (0.1-0.2)
[2019-11-23 10:28] LABS: ALKALINE PHOSPHATASE 76 U/L (45-117); BILIRUBIN,INDIRECT 0.2 mg/dL (0.0-2.0); BILIRUBIN,TOTAL 0.3 mg/dL (0.2-1.0); CHOL/HDL RATIO 3.7; CHOLESTEROL, TOTAL 198 mg/dL (140-239); CREATININE 0.87 mg/dL (0.7-1.3); FREE T4 (FREE THYROXINE) 1.05 ng/dL (0.76-1.46); HDL CHOL % 27 % (26-37); HDL CHOLESTEROL (DIRECT) 54 mg/dL (40-60); LDL CHOLESTEROL,CALCULATED 117 mg/dL (54-169); LDL/HDL RATIO 2.2 (0.5-3.0); TOTAL PROTEIN 6.9 g/dL (6.4-8.2); TRIGLYCERIDES 137 mg/dL (50-200); VLDL CHOLESTEROL 27 mg/dL (0-25)
[2019-11-23 19:49] VITALS: BP 114/76
[2019-11-24 07:34] VITALS: BP 118/78
[2019-11-24] MEDS: OLANZAPINE 10 MG TABLET PO SCH (08:18)
[2019-11-24] MEDS: ACAMPROSATE 333 MG TABLET.DR PO SCH ×3 (09:11→19:40)
[2019-11-24] MEDS: FLUOXETINE HCL 20 MG CAPSULE PO SCH (09:11)
[2019-11-24] MEDS: ACETAMINOPHEN 325 MG TABLET PO PRN (19:40)
[2019-11-24 19:45] VITALS: BP 121/79
[2019-11-25] MEDS: ACETAMINOPHEN 325 MG TABLET PO PRN (06:37)
[2019-11-25 07:45] VITALS: BP 115/86
[2019-11-25] MEDS: DOCUSATE 100 MG CAPSULE PO PRN (09:04)
[2019-11-25] MEDS: OLANZAPINE 10 MG TABLET PO SCH (09:04)
[2019-11-25] MEDS: ACAMPROSATE 333 MG TABLET.DR PO SCH ×4 (09:05→20:48)
[2019-11-25] MEDS: FLUOXETINE HCL 20 MG CAPSULE PO SCH (09:06)
[2019-11-25] MEDS ORDERED: PANTOPRAZOLE 40MG TABLET PO PRN (10:30)
[2019-11-25] MEDS: INDOMETHACIN 50 MG CAPSULE PO PRN (15:39)
[2019-11-25 19:15] VITALS: BP 127/77
[2019-11-25] MEDS: MELATONIN 5 MG TABLET PO PRN (21:19)
[2019-11-26 07:38] VITALS: BP 110/68
[2019-11-26] MEDS: INDOMETHACIN 50 MG CAPSULE PO PRN (09:24)
[2019-11-26] MEDS: OLANZAPINE 10 MG TABLET PO SCH (09:24)
[2019-11-26] MEDS: ACAMPROSATE 333 MG TABLET.DR PO SCH ×3 (09:26→20:25)
[2019-11-26] MEDS: FLUOXETINE HCL 20 MG CAPSULE PO SCH (09:26)
[2019-11-26] MEDS: DOCUSATE 100 MG CAPSULE PO PRN (11:15)
[2019-11-26 19:07] VITALS: BP 112/75
[2019-11-26] MEDS: MELATONIN 5 MG TABLET PO PRN (20:24)
[2019-11-27 07:29] VITALS: BP 124/70
[2019-11-27] MEDS: ACAMPROSATE 333 MG TABLET.DR PO SCH ×3 (09:00→20:31)
[2019-11-27] MEDS: OLANZAPINE 10 MG TABLET PO SCH (09:00)
[2019-11-27] MEDS: FLUOXETINE HCL 20 MG CAPSULE PO SCH (09:00)
[2019-11-27 19:08] VITALS: BP 110/73
[2019-11-27] MEDS: MELATONIN 5 MG TABLET PO PRN (20:24)
[2019-11-28 07:44] VITALS: BP 146/90
[2019-11-28] MEDS: OLANZAPINE 10 MG TABLET PO SCH (08:20)
[2019-11-28] MEDS: ACAMPROSATE 333 MG TABLET.DR PO SCH ×3 (09:00→20:32)
[2019-11-28] MEDS: FLUOXETINE HCL 20 MG CAPSULE PO SCH (09:00)
[2019-11-28 19:38] VITALS: BP 99/64
[2019-11-28] MEDS: MELATONIN 5 MG TABLET PO PRN (20:32)
[2019-11-29 07:38] VITALS: BP 105/75
[2019-11-29] MEDS: OLANZAPINE 10 MG TABLET PO SCH (09:00)
[2019-11-29] MEDS: ACAMPROSATE 333 MG TABLET.DR PO SCH ×3 (09:00→21:09)
[2019-11-29] MEDS: FLUOXETINE HCL 20 MG CAPSULE PO SCH (09:00)
[2019-11-29 19:15] VITALS: BP 122/79
[2019-11-29] MEDS: MELATONIN 5 MG TABLET PO PRN (22:28)
[2019-11-30 07:10] VITALS: BP 108/72
[2019-11-30] MEDS: FLUOXETINE HCL 20 MG CAPSULE PO SCH (08:49)
[2019-11-30] MEDS: ACAMPROSATE 333 MG TABLET.DR PO SCH ×3 (08:49→20:00)
[2019-11-30] MEDS: OLANZAPINE 10 MG TABLET PO SCH (08:49)
[2019-11-30] MEDS: DOCUSATE 100 MG CAPSULE PO PRN (12:05)
[2019-11-30 19:15] VITALS: BP 119/68
[2019-11-30] MEDS: MELATONIN 5 MG TABLET PO PRN (19:58)
[2019-12-01 07:38] VITALS: BP 116/77
[2019-12-01] MEDS: FLUOXETINE HCL 20 MG CAPSULE PO SCH (09:15)
[2019-12-01] MEDS: ACAMPROSATE 333 MG TABLET.DR PO SCH ×3 (09:15→20:27)
[2019-12-01] MEDS: OLANZAPINE 10 MG TABLET PO SCH (09:16)
[2019-12-01] MEDS: DOCUSATE 100 MG CAPSULE PO PRN (17:37)
[2019-12-01 19:18] VITALS: BP 114/73
[2019-12-01] MEDS: MELATONIN 5 MG TABLET PO PRN (20:27)
[2019-12-02 07:35] VITALS: BP 104/67
[2019-12-02] MEDS: OLANZAPINE 10 MG TABLET PO SCH (09:20)
[2019-12-02] MEDS: FLUOXETINE HCL 20 MG CAPSULE PO SCH (09:20)
[2019-12-02] MEDS: ACAMPROSATE 333 MG TABLET.DR PO SCH ×3 (09:20→21:00)
[2019-12-02] MEDS: DOCUSATE 100 MG CAPSULE PO PRN (15:08)
[2019-12-02 19:49] VITALS: BP 106/69
[2019-12-02] MEDS: MELATONIN 5 MG TABLET PO PRN (20:31)
[2019-12-03] MEDS: DOCUSATE 100 MG CAPSULE PO PRN (05:46)
[2019-12-03 07:33] VITALS: BP 108/73
[2019-12-03] MEDS: OLANZAPINE 10 MG TABLET PO SCH (08:19)
[2019-12-03] MEDS: ACAMPROSATE 333 MG TABLET.DR PO SCH (08:19)
[2019-12-03] MEDS: FLUOXETINE HCL 20 MG CAPSULE PO SCH (08:19)
[2019-12-03] MEDS ORDERED: CLON1TAB11 PO (12:59)
[2019-12-03] MEDS ORDERED: MELA5TAB14 PO (12:59)
[2019-12-03] MEDS ORDERED: ACAM333T7 PO (12:59)
[2019-12-03] MEDS ORDERED: OLAN10TA9 PO (12:59)
[2019-12-03] MEDS ORDERED: PANT40TA5 PO (12:59)
[2019-12-03] MEDS ORDERED: INDO50CA15 PO (12:59)
[2019-12-03] MEDS ORDERED: FLUO20CA23 PO (12:59)
== END 2019-12-03 13:55 | disposition home or self-care (01) | DRG 885 ==
LOC: 3E 19:52
PROVIDERS: ADMIT Psychiatry & Neurology Psychosomatic Medicine; ATTEND Psychiatry & Neurology Psychosomatic Medicine
DX: F33.2 Major depressive disorder, recurrent severe without psychotic features (principal); R45.851 Suicidal ideations; E53.8 Deficiency of other specified B group vitamins; E66.9 Obesity, unspecified; F22 Delusional disorders; F41.1 Generalized anxiety disorder; F42.9 Obsessive-compulsive disorder, unspecified; G47.00 Insomnia, unspecified; G47.33 Obstructive sleep apnea (adult) (pediatric); G89.29 Other chronic pain; I27.20 Pulmonary hypertension, unspecified; K21.9 Gastro-esophageal reflux disease without esophagitis; M10.9 Gout, unspecified; F95.2 Tourette's disorder; R10.9 Unspecified abdominal pain; Z79.899 Other long term (current) drug therapy; Z88.8 Allergy status to other drugs, medicaments and biological substances; Z83.3 Family history of diabetes mellitus; Z81.8 Family history of other mental and behavioral disorders; Z68.33 Body mass index [BMI] 33.0-33.9, adult; Z91.14 Patient's other noncompliance with medication regimen
CPT/HCPCS: 36415; 71045; 80048; 80061; 80076; 81003; 82140; 82607; 84439; 84443; 85025; 93005

== ENCOUNTER 2019-12-29 11:37 | Emergency (ER) | payer MEDICARE, MEDICAID ==
[~2019-12-29] VITALS: Ht 177.8 cm; Wt 95.0 kg
[~2019-12-29 11:37] MED LIST changes: +INDO50CA15 PO; +MELA5TAB14 PO; +MULT-449 PO; -MULT1TAB60 PO; +PANT40TA5 PO
[2019-12-29] MEDS ORDERED: PLEASE ENTER HEIGHT AND WEIGHT MC SCH (11:49)
--- NOTE | 2019-12-29 11:50 | NUR ---
PRESENTS VIA EMS FROM PSYCHIATRIC CLINIC WHERE PATIENT WAS BEING EVALUATED FOR CHRONIC PSYCHIATRIC AILMENTS. SW PLACED PATIENT ON HOLD PATIENT THREATNING TO COMMIT SUICIDE BY TAKING PILLS. PATIENT REPORTS "MY ABD PAIN HAS BEEN GETTING WORSE AND IT'S DRIVING ME NUTS. I TRY TO COME IN AND THE HOSPITAL ALWAYS TELLS ME TO GO HOME." NO HX OF PROVIDER TO BEDSIDE TO PLACE PATIENT/ROOM IN PSYCHIATRIC PRECAUTIONS
--- NOTE | 2019-12-29 11:57 | NUR ---
LAB AT BEDSIDE
[2019-12-29] MEDS ORDERED: SODIUM CHLORIDE FLUSH 10ML SYR IVF ONE (12:00)
[2019-12-29] MEDS ORDERED: HYDROmorphone 2 MG/ML, 1ML IVPush PRN (12:00)
[2019-12-29] MEDS ORDERED: SODIUM CHLORIDE 0.9% 1,000ML IVBOLUS ONE (12:00)
[2019-12-29] MEDS ORDERED: ONDANSETRON 2MG/ML, 2ML IVPush ONE (12:00)
[2019-12-29] MEDS ORDERED: PIMO1TAB2 PO (12:11)
--- NOTE | 2019-12-29 12:13 | NUR ---
patrizia (psychiatry outboard motor mechanic) at bedside
[2019-12-29 12:16] LABS: BASOPHILS # (AUTO) 0.02 x10^3/uL (0-0.1); BASOPHILS % (AUTO) 0 % (0-1); EOSINOPHILS # (AUTO) 0.12 x10^3/uL (0-0.4); EOSINOPHILS % (AUTO) 2 % (1-7); LYMPHOCYTES # (AUTO) 1.71 x10^3/uL (1-3.4); LYMPHOCYTES % (AUTO) 29 % (22-44); MD NO; MEAN CORPUSCULAR HEMOGLOBIN 33.9 pg (27.5-34.5); MEAN CORPUSCULAR HGB CONC 32.7 g/dL (33.2-36.2); MEAN CORPUSCULAR VOLUME 103.9 fL (81-97); MEAN PLATELET VOLUME 7.9 fL (7.4-10.4); MONOCYTES # (AUTO) 0.38 x10^3/uL (0.2-0.8); MONOCYTES % (AUTO) 6 % (2-9); NEUTROPHILS # (AUTO) 3.77 x10^3/uL (1.8-6.8); NEUTROPHILS % (AUTO) 63 % (42-75); PLATELET COUNT 231 x10^3/uL (130-400); RED BLOOD COUNT 4.37 x10^6/uL (4.38-5.82); RED CELL DISTRIBUTION WIDTH 16.1 % (9.4-14.8)
--- NOTE | 2019-12-29 12:19 | NUR ---
RECEIVED REPORT FROM NAM SNELL. PT RESTING ON [facility]. MONITORS IN PLACE. FACUNDO LOUIS APRN REMAINS AT BEDSIDE.
[2019-12-29 12:22] LABS: ALANINE AMINOTRANSFERASE 30 U/L (12-78); ALBUMIN 3.6 g/dL (3.4-5.0); ANION GAP 4 mmol/L (5-15); CALCIUM 8.5 mg/dL (8.5-10.1); CHLORIDE 104 mmol/L (98-107); CREATININE 0.74 mg/dL (0.7-1.3)
[2019-12-29] MEDS ORDERED: ONDANSETRON 2MG/ML, 2ML ONE (12:22)
[2019-12-29 12:25] LABS: SALICYLATE LEVEL < 1.7 mg/dL (2.8-20.0)
[2019-12-29 12:27] LABS: ALKALINE PHOSPHATASE 71 U/L (45-117); BILIRUBIN,TOTAL 0.6 mg/dL (0.2-1.0)
--- NOTE | 2019-12-29 12:51 | NUR ---
MESSAGE LEFT WITH [facility] DISPATCH IN R/T TO MISPLACED HOLD PAPERWORK. PROVIDED WITH RETURN PHONE NUMBER
--- NOTE | 2019-12-29 13:30 | NUR ---
assumed care of pt. no report recieved. pt is on a legal hold for SI. pt intermittently agitated, but cooperative. reports that he is having chronic abd. pain. no apparent distress at this time. pt requesting water but pt made aware of NPO status at this time. room secure and sitter present for safety. pt reports that he is still having SI.
[2019-12-29] MEDS ORDERED: OMNIPAQUE 350 MG/ML, 100ML BOTTLE ONE (13:32)
--- NOTE | 2019-12-29 14:30 | NUR ---
no changes. pt sitting up on gurney in position of comfort. sitter at bedside. awaiting acceptance to [facility] facility
--- NOTE | 2019-12-29 15:43 | NUR ---
pt sleeping. sitter at bedside.
[2019-12-29] MEDS ORDERED: HYDROmorphone 1 MG/ML, 1ML INJ ONE (16:55)
[2019-12-29] MEDS ORDERED: HYDROmorphone 2 MG/ML, 1ML ONE (17:02)
[2019-12-29 17:09] VITALS: BP 119/68
--- NOTE | 2019-12-29 17:12 | NUR ---
p has been medicated per order. attempted to call report, RN not ready
--- NOTE | 2019-12-29 17:23 | NUR ---
report called to Brenda BROWNING
--- NOTE | 2019-12-29 17:25 | NUR ---
IV to be D/C per recieving RN pe unit policy
[2019-12-29] MEDS ORDERED: MELATONIN 3 MG TABLET PO SCH (21:00)
== END 2019-12-29 18:15 ==
LOC: ED 13:44
DX: R45.851 Suicidal ideations (principal); R11.0 Nausea; R19.7 Diarrhea, unspecified; I50.9 Heart failure, unspecified
CPT/HCPCS: 36415; 74177; 80053; 80307; 83605; 83690; 85025; 96374; 96375; 99285; J1170; J2405; J7030; Q9967

== ENCOUNTER 2019-12-29 16:21 | Inpatient (IN) | payer MEDICARE, MEDICAID ==
[~2019-12-29] VITALS: Ht 180.3 cm; Wt 105.2 kg
[~2019-12-29 16:21] MED LIST changes: +PIMO1TAB2 PO
[2019-12-29] MEDS ORDERED: POLYETHYLENE GLYCOL 17 GM PACKET PO PRN (17:30)
[2019-12-29 17:32] VITALS: BP 123/79
[2019-12-29] MEDS ORDERED: PLEASE ENTER HEIGHT AND WEIGHT MC SCH (18:30)
[2019-12-29 20:01] VITALS: BP 123/79
[2019-12-29] MEDS: MELATONIN 5 MG TABLET PO PRN (20:35)
[2019-12-29] MEDS: ACETAMINOPHEN 325 MG TABLET PO PRN (21:36)
[2019-12-30] MEDS: ACETAMINOPHEN 325 MG TABLET PO PRN ×3 (02:20→13:20)
[2019-12-30 07:51] VITALS: BP 96/55
[2019-12-30 09:38] LABS: CHOL/HDL RATIO 2.9; FREE T4 (FREE THYROXINE) 0.78 ng/dL (0.76-1.46); LDL/HDL RATIO 1.3 (0.5-3.0)
[2019-12-30 14:00] LABS: ALBUMIN 3.4 g/dL (3.4-5.0); ANION GAP 6 mmol/L (5-15); CALCIUM 8.5 mg/dL (8.5-10.1); CHLORIDE 102 mmol/L (98-107); CREATININE 0.97 mg/dL (0.7-1.3)
[2019-12-30 14:00] LABS: BASOPHILS # (AUTO) 0.02 x10^3/uL (0-0.1); BASOPHILS % (AUTO) 0 % (0-1); EOSINOPHILS # (AUTO) 0.14 x10^3/uL (0-0.4); EOSINOPHILS % (AUTO) 3 % (1-7); LYMPHOCYTES # (AUTO) 1.06 x10^3/uL (1-3.4); LYMPHOCYTES % (AUTO) 19 % (22-44); MD NO; MEAN CORPUSCULAR HEMOGLOBIN 33.8 pg (27.5-34.5); MEAN CORPUSCULAR HGB CONC 32.4 g/dL (33.2-36.2); MEAN PLATELET VOLUME 8.7 fL (7.4-10.4); MONOCYTES # (AUTO) 0.31 x10^3/uL (0.2-0.8); MONOCYTES % (AUTO) 6 % (2-9); NEUTROPHILS # (AUTO) 4.02 x10^3/uL (1.8-6.8); NEUTROPHILS % (AUTO) 72 % (42-75); PLATELET COUNT 202 x10^3/uL (130-400); RED CELL DISTRIBUTION WIDTH 15.5 % (9.4-14.8)
[2019-12-30] MEDS ORDERED: OMNIPAQUE 350 MG/ML, 100ML BOTTLE ONE (15:27)
[2019-12-30 16:28] LABS: MICROSCOPIC NOT IND
[2019-12-30] MEDS: OLANZAPINE ODT 10MG PO SCH (17:00)
[2019-12-30] MEDS: OXYcodone IR 5MG TABLET PO PRN ×2 (17:37→20:18)
[2019-12-30 19:38] VITALS: BP 122/84
[2019-12-30] MEDS: MELATONIN 5 MG TABLET PO PRN (20:18)
[2019-12-31] MEDS: OXYcodone IR 5MG TABLET PO PRN ×4 (01:56→20:36)
[2019-12-31 07:38] VITALS: BP 108/68
[2019-12-31] MEDS: OLANZAPINE ODT 10MG PO SCH (09:00)
[2019-12-31] MEDS: LURASIDONE 20 MG TABLET PO SCH (09:16)
[2019-12-31] MEDS: ACETAMINOPHEN 325 MG TABLET PO PRN (14:19)
[2019-12-31 19:32] VITALS: BP 109/68
[2019-12-31] MEDS: MELATONIN 5 MG TABLET PO PRN (20:36)
[2020-01-01 07:36] VITALS: BP 125/78
[2020-01-01] MEDS: OXYcodone IR 5MG TABLET PO PRN ×3 (08:42→21:14)
[2020-01-01] MEDS: LURASIDONE 20 MG TABLET PO SCH (08:42)
[2020-01-01] MEDS: DOCUSATE 100 MG CAPSULE PO PRN (11:08)
[2020-01-01] MEDS: ACETAMINOPHEN 325 MG TABLET PO PRN (13:43)
[2020-01-01 19:23] VITALS: BP 125/74
[2020-01-01] MEDS: MELATONIN 5 MG TABLET PO PRN (21:14)
[2020-01-02 07:15] VITALS: BP 110/74
[2020-01-02] MEDS: LURASIDONE 20 MG TABLET PO SCH (09:20)
[2020-01-02] MEDS: OXYcodone IR 5MG TABLET PO PRN ×2 (11:36→18:19)
[2020-01-02 19:15] VITALS: BP 112/73
[2020-01-02] MEDS: MELATONIN 5 MG TABLET PO PRN (21:07)
[2020-01-03 07:10] VITALS: BP 122/79
[2020-01-03] MEDS: LURASIDONE 20 MG TABLET PO SCH (08:17)
[2020-01-03] MEDS: OXYcodone IR 5MG TABLET PO PRN ×2 (08:28→23:40)
[2020-01-03] MEDS: DOCUSATE 100 MG CAPSULE PO PRN (14:24)
[2020-01-03 19:47] VITALS: BP 112/65
[2020-01-03] MEDS: MELATONIN 5 MG TABLET PO PRN (20:23)
[2020-01-04] MEDS: OXYcodone IR 5MG TABLET PO PRN (04:47)
[2020-01-04 07:20] VITALS: BP 130/77
[2020-01-04] MEDS: LURASIDONE 20 MG TABLET PO SCH (08:19)
[2020-01-04] MEDS: DOCUSATE 100 MG CAPSULE PO PRN (08:20)
[2020-01-04 19:15] VITALS: BP 110/68
[2020-01-04] MEDS: MELATONIN 5 MG TABLET PO PRN (20:11)
[2020-01-05] MEDS: OXYcodone IR 5MG TABLET PO PRN (05:37)
[2020-01-05 07:10] VITALS: BP 103/63
[2020-01-05] MEDS: LURASIDONE 20 MG TABLET PO SCH (08:26)
[2020-01-05] MEDS ORDERED: CLON1TAB11 PO (12:07)
[2020-01-05] MEDS ORDERED: LURA20TA PO (12:07)
[2020-01-05] MEDS ORDERED: MELA5TAB14 PO (12:07)
== END 2020-01-05 13:10 | disposition home or self-care (01) | DRG 885 ==
LOC: 3E 18:10
PROVIDERS: ADMIT Psychiatry & Neurology Psychosomatic Medicine; ATTEND Psychiatry & Neurology Psychosomatic Medicine
DX: F33.2 Major depressive disorder, recurrent severe without psychotic features (principal); R45.851 Suicidal ideations; F06.4 Anxiety disorder due to known physiological condition; E53.8 Deficiency of other specified B group vitamins; E66.9 Obesity, unspecified; F22 Delusional disorders; F41.1 Generalized anxiety disorder; F42.9 Obsessive-compulsive disorder, unspecified; F95.2 Tourette's disorder; G47.00 Insomnia, unspecified; G89.29 Other chronic pain; M10.9 Gout, unspecified; F39 Unspecified mood [affective] disorder
CPT/HCPCS: 36415; 74177; 80061; 80069; 81003; 83690; 83735; 84439; 84443; 85025; 93005; Q9967

== ENCOUNTER 2020-05-24 04:01 | Emergency (ER) | payer MEDICARE, MEDICAID ==
[~2020-05-24] VITALS: Ht 180.3 cm; Wt 86.0 kg
[~2020-05-24 04:01] MED LIST changes: +LURA20TA PO; -PANT40TA5 PO; +PANT40TA6 PO
[2020-05-24 04:35] LABS: BASOPHILS % (AUTO) 0 % (0-1); EOSINOPHILS % (AUTO) 1 % (1-7); LYMPHOCYTES % (AUTO) 17 % (22-44); MEAN CORPUSCULAR HGB CONC 33.6 g/dL (33.2-36.2); MEAN PLATELET VOLUME 6.7 fL (7.4-10.4); MONOCYTES % (AUTO) 6 % (2-9); NEUTROPHILS % (AUTO) 76 % (42-75); PLATELET COUNT 244 x10^3/uL (130-400); RED BLOOD COUNT 3.19 x10^6/uL (4.38-5.82); RED CELL DISTRIBUTION WIDTH 16.1 % (9.4-14.8)
[2020-05-24 04:36] LABS: MD NO
[2020-05-24 04:47] LABS: ALANINE AMINOTRANSFERASE 24 U/L (12-78); ALBUMIN 3.2 g/dL (3.4-5.0); ANION GAP 5 mmol/L (5-15); CALCIUM 7.8 mg/dL (8.5-10.1); CHLORIDE 106 mmol/L (98-107); CREATININE 0.66 mg/dL (0.7-1.3)
--- NOTE | 2020-05-24 04:48 | NUR ---
PT AMBULATORY TO BATHROOM FOR UA, STEADY GAIT.
[2020-05-24 04:50] LABS: SALICYLATE LEVEL < 1.7 mg/dL (2.8-20.0)
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
[2020-05-24 04:57] LABS: ALKALINE PHOSPHATASE 69 U/L (45-117); BILIRUBIN,TOTAL 0.6 mg/dL (0.2-1.0); TOTAL PROTEIN 6.2 g/dL (6.4-8.2)
[2020-05-24] MEDS ORDERED: ONDANSETRON ODT 4 MG PO ONE (05:30)
[2020-05-24] MEDS ORDERED: ONDANSETRON ODT 4 MG ONE (05:32)
[2020-05-24] MEDS ORDERED: LORazepam 1MG TABLET ONE ×2 (05:40→07:11)
[2020-05-24 05:45] LABS: AMPHETAMINE SCREEN, URINE Negative (Negative); BARBITURATE SCREEN, URINE Negative (Negative); BENZODIAZEPINE SCREEN, URINE Negative (Negative); CANNABINOID SCREEN, URINE Negative (Negative); COCAINE SCREEN, URINE Negative (Negative); METHADONE SCREEN, URINE Negative (Negative); OPIATE SCREEN, URINE Negative (Negative)
[2020-05-24] MEDS ORDERED: LORazepam 1MG TABLET PO ONE ×2 (06:00→07:30)
--- NOTE | 2020-05-24 06:54 | NUR ---
REPORT RECEIVED FROM NAM ANDERSEN. ASSUMING PRIMARY CARE OF PT. PT LYING ON GURGALVA. TELEPSYCH INITATED. AWAITING CONSULT.
[2020-05-24] MEDS ORDERED: LORazepam 2 MG/ML, 1ML ONE (07:08)
--- NOTE | 2020-05-24 07:13 | NUR ---
RN ANSWERED PT'S CALL LIGHT. PT REQUESTING MORE ATIVAN. RN OBTAINED ORDER FOR ERMD. MEDICATION ADMINISTERED PER EMAR.
--- NOTE | 2020-05-24 07:55 | NUR ---
RN IN ROOM WITH PT WHILE TELEPSYCH IS EVALUATING HIM.
--- NOTE | 2020-05-24 08:22 | NUR ---
BREAKFAST DELIVERED TO PT.
--- NOTE | 2020-05-24 08:52 | NUR ---
PSYCH REPORT RECEIVED VIA FAX. RN PROVIDED REPORT TO CARLYN.
--- NOTE | 2020-05-24 09:09 | NUR ---
PIPING BLOCKER TO EVALUATE PT. PT ON LEGAL HOLD.
--- NOTE | 2020-05-24 09:18 | NUR ---
PT PLACED ON LEGAL HOLD. RN INFORMED CONSUMER PRODUCT ADVISOR SHAILA. SI PRECAUTIONS IN PLACE. PT LYING ON GURNEY AND IS COOPERATIVE. AWAITING EVALUATION FROM IN HOUSE HEAD OF TALENT MANAGEMENT.
[2020-05-24] MEDS ORDERED: FLUO40CA9 PO (09:21)
--- NOTE | 2020-05-24 09:23 | NUR ---
RN INFORMED PA THAT PT IS HAVING SHOULDER AND BACK PAIN. PA TO ORDER MEDICATION FOR PAIN.
[2020-05-24] MEDS ORDERED: KETOROLAC 30 MG/1 ML ONE (09:26)
--- NOTE | 2020-05-24 09:31 | NUR ---
MEDICATION ADMINISTER FOR SHOULDER AND BACK PAIN.
[2020-05-24] MEDS ORDERED: KETOROLAC 30 MG/1 ML IM ONE (10:00)
--- NOTE | 2020-05-24 10:14 | NUR ---
DECLINED BY [facility].
--- NOTE | 2020-05-24 10:23 | NUR ---
PT MOVED TO ROOM 3 VIA GURNEY. REPORT TO NAM HENLEY TO ASSUME PRIMARY CARE OF PT.
--- NOTE | 2020-05-24 10:24 | NUR ---
BEDSIDE REPORT RECEIVED FROM ALICIA BROWNING Addendum: 05/24/20 at 1027 by [place] BEDSIDE REPORT RECEIVED FROM ALICIA BROWNING. PT MOVED FROM ED ROOM 40 TO ED ROOM 3. PT CALM AND COOPERATIVE WITH STAFF. ANSWERS QUESTIONS APPROPRIATELY. NAD, VSS. PT ON O2 AT HOME, PLACED ON 2L VIA NASAL CANNULA. SAFETY GIVENS DOWN AND SITTER WITHIN VIEW. NO NEEDS AT THIS TIME. WILL CONTINUE TO MONITOR.
--- NOTE | 2020-05-24 10:31 | NUR ---
PACKET FAXED TO [facility], [facility], [facility], [facility] FOR ACCEPTANCE.
--- NOTE | 2020-05-24 10:49 | NUR ---
REPORT GIVEN TO JONATHAN BROWNING
[2020-05-24] MEDS ORDERED: ZIPRASIDONE 20 MG INJ IM ONE ×2 (13:00)
--- NOTE | 2020-05-24 13:02 | NUR ---
PT REPORTS FEELING ANXIOUS AND UNABLE FEEL CALM. DISCUSSES WITH , PT HAS RECEIVED ATIVAN WITH NO IMPROVEMENT. PER ORDER FOR GEODON 5MG PLACED.
--- NOTE | 2020-05-24 13:10 | NUR ---
PT TRANSFERRED TO MEDICAL BED.
--- NOTE | 2020-05-24 13:39 | NUR ---
charo with [facility] called with dr lopez accepting. requested eta [phone]
[2020-05-24 14:05] VITALS: BP 129/77
--- NOTE | 2020-05-24 14:54 | NUR ---
REPORT TO JENNIFER BROWNING AT [facility].
--- NOTE | 2020-05-24 16:30 | NUR ---
[facility] HERE FOR TX TO [facility]. REPORT TO EMS. PT AMBULATORY ALONG SIDE EMS STAFF.
== END 2020-05-24 16:39 ==
LOC: ED 06:23
DX: R45.851 Suicidal ideations (principal); Z91.19 Patient's noncompliance with other medical treatment and regimen
CPT/HCPCS: 36415; 80053; 80307; 84443; 85025; 96372; 99285; J1885; J3486; Q0162

== ENCOUNTER 2020-06-14 08:56 | Emergency (ER) | payer MEDICARE, MEDICAID ==
[~2020-06-14] VITALS: Ht 175.3 cm; Wt 94.0 kg
[2020-06-14] MEDS ORDERED: SODIUM CHLORIDE FLUSH 10ML SYR IVF ONE (10:00)
[2020-06-14 10:51] LABS: ALBUMIN 3.7 g/dL (3.4-5.0); ANION GAP 7 mmol/L (5-15); CALCIUM 8.6 mg/dL (8.5-10.1); CHLORIDE 105 mmol/L (98-107)
[2020-06-14 10:52] LABS: BASOPHILS % (AUTO) 0 % (0-1); EOSINOPHILS % (AUTO) 2 % (1-7); LYMPHOCYTES % (AUTO) 24 % (22-44); MEAN PLATELET VOLUME 7.2 fL (7.4-10.4); MONOCYTES % (AUTO) 10 % (2-9); NEUTROPHILS % (AUTO) 63 % (42-75); PLATELET COUNT 244 x10^3/uL (130-400); RED BLOOD COUNT 3.65 x10^6/uL (4.38-5.82); RED CELL DISTRIBUTION WIDTH 14.3 % (9.4-14.8)
[2020-06-14 10:55] LABS: ALANINE AMINOTRANSFERASE 33 U/L (12-78); ALKALINE PHOSPHATASE 72 U/L (45-117); BILIRUBIN,TOTAL 0.3 mg/dL (0.2-1.0)
[2020-06-14] MEDS ORDERED: ONDANSETRON 2MG/ML, 2ML ONE (11:21)
[2020-06-14] MEDS ORDERED: MORPHINE SULFATE 4 MG/ML, 1ML ONE (11:21)
[2020-06-14] MEDS ORDERED: MAALOX/HYOSCYAMINE/LIDOCAINE 45 ML BTL ONE (11:21)
[2020-06-14] MEDS ORDERED: MORPHINE SULFATE 4 MG/ML, 1ML IVPush PRN (11:30)
[2020-06-14] MEDS ORDERED: ONDANSETRON 2MG/ML, 2ML IVPush ONE (11:30)
[2020-06-14] MEDS ORDERED: MAALOX/HYOSCYAMINE/LIDOCAINE 45 ML BTL PO ONE (11:30)
[2020-06-14 11:48] VITALS: BP 148/74
--- NOTE | 2020-06-14 11:50 | NUR ---
BIB [facility] TO LOBBY C/O ABDOMINAL PAIN. STATES "I CAN'T DO THIS ANYMORE, I JUST WANT TO GIVE UP BECAUSE THE PAIN IS SO BAD. STATES ABD PAIN X 8+MONTHS. GRUNTING ON PRESENTATION PT. STATES FROM PAIN. MONITORS CONNECTED, EKG COMPLETE. WARM BLANKET PROVIDED.
--- NOTE | 2020-06-14 11:52 | NUR ---
ORDERED MEDICATIONS ADMINISTERED. PLACED ON 1L NASAL CANNULA FOR SP02 OF 81 WHILE SITTING. CURRENTLY 99% ON 1L WHILE RESTING.
[2020-06-14 12:09] LABS: MD MORPH REVIEW ONLY
[2020-06-14 12:10] LABS: <PLATELET ESTIMATE> ADEQUATE; <PLT MORPHOLOGY> NORMAL PLT MORPH; ANISOCYTOSIS 1+
--- NOTE | 2020-06-14 12:15 | NUR ---
PAIN REASSESSED, STATES 7/10 ABD PAIN. UA IN PROGRESS
[2020-06-14 12:49] LABS: MICROSCOPIC INDICATED
== END 2020-06-14 12:58 | disposition home or self-care (01) ==
LOC: ED 10:37
DX: K29.00 Acute gastritis without bleeding (principal); G89.29 Other chronic pain; R10.84 Generalized abdominal pain; R19.7 Diarrhea, unspecified; R11.2 Nausea with vomiting, unspecified; R42 Dizziness and giddiness; I50.9 Heart failure, unspecified
CPT/HCPCS: 36415; 74022; 80053; 81001; 83690; 85025; 93005; 96374; 96375; 99285; J2270; J2405

== ENCOUNTER 2020-06-26 17:51 | Emergency (ER) | payer MEDICARE, MEDICAID ==
[~2020-06-26] VITALS: Ht 177.8 cm; Wt 81.8 kg
--- NOTE | 2020-06-26 18:04 | NUR ---
BIB EMS FROM HIS HOME. PT WITH HX OF TOURETS SYNDROME, CHRONIC ABD PAIN, DEP & ANXIETY. PT VERBALIZES REPEATEDLY "I JUST CAN'T TAKE THIS ANYMORE" PT REFERS TO HIS UNCONTROLLED TOURETTS AND ABD PAIN. ALSO REFERS TO FEELING PARANOID BUT IS NOT SPECIFIC. PT STATES THAT HE WOULD REALLY LIKE TO GET INTO A SENIOR LIVING THAT HE DOES NOT FEEL THAT HE CAN TAKE CARE OF HIMSELF INDEPENDENTLY. PT AMDMITS TO BEING NON-COMPLIANT WITH HIS MEDICATIONS STATING THAT HE JUST ISN'T SURE WHAT HE IS SUPPOSED TO BE DOING. PT UNDRESSED WITH RN ASSIST, CLOTHES PLACED IN BELONGINGS BAG, PT REQUESTS SECURITY TO LOCKUP HIS STOKES. SECURITY CALLED. VSS, CALL LIGHT W/I REACH. NO SI SECURE ROOM AVAILABLE AT THIS TIME. PT WITHIN VIEW OF PARASITOLOGIST. PT VERBALIZES TO THIS RN THAT HE WILL NOT TRY TO HARM HIMSELF WHILE HERE IN THE EMERGENCY ROOM.
--- NOTE | 2020-06-26 18:12 | NUR ---
DR VICTORIA AT BEDSIDE.
--- NOTE | 2020-06-26 18:30 | NUR ---
BELONGINGS BAG X 1 PLACED IN LOCKER, WALLET AND STOKES IN SAFEKEEPING. SAFEKEEPING # [id number]
[2020-06-26 18:37] LABS: BASOPHILS % (AUTO) 1 % (0-1); EOSINOPHILS % (AUTO) 2 % (1-7); LYMPHOCYTES % (AUTO) 29 % (22-44); MEAN CORPUSCULAR HGB CONC 33.7 g/dL (33.2-36.2); MEAN PLATELET VOLUME 7.6 fL (7.4-10.4); MONOCYTES % (AUTO) 9 % (2-9); NEUTROPHILS % (AUTO) 59 % (42-75); PLATELET COUNT 211 x10^3/uL (130-400); RED BLOOD COUNT 3.69 x10^6/uL (4.38-5.82)
[2020-06-26 18:41] LABS: ALBUMIN 3.6 g/dL (3.4-5.0); ANION GAP 5 mmol/L (5-15); CALCIUM 8.7 mg/dL (8.5-10.1); CHLORIDE 105 mmol/L (98-107); CREATININE 0.83 mg/dL (0.7-1.3)
[2020-06-26 18:42] LABS: MD NO; SALICYLATE LEVEL < 1.7 mg/dL (2.8-20.0)
--- NOTE | 2020-06-26 18:43 | NUR ---
PT WAITING ON THE LINE FOR TELEPSYCH DOCTOR.
--- NOTE | 2020-06-26 19:06 | NUR ---
TELEHEALTH PROVIDER IS DR CANO
--- NOTE | 2020-06-26 19:14 | NUR ---
DR CANO ADVISING TENTATIVE PLAN IS TO PLACE PT ON A LEGAL HOLD.
--- NOTE | 2020-06-26 19:15 | NUR ---
REPORT RECEIVED FROM MIRYAM BROWNING. REPORTS SHE SPOKE W/ TELEPSYCH DOC, AND PT WILL PROBABLY BE PLACED ON HOLD HOWEVER HAS NOT SPOKEN W/ PT YET. PT HERE W/ C/O CHRONIC ABD PAIN, TOURETTES AND SI. PT RESTING ON [employer] W/ CALL LIGHT IN REACH AND SIDE RAILS UPX2, CONNECTED TO ALL MONITORING, WILL REQUEST SITTER FROM INFORMATICS COORDINATOR.
[2020-06-26 19:17] LABS: AMPHETAMINE SCREEN, URINE Negative (Negative); BARBITURATE SCREEN, URINE Negative (Negative); BENZODIAZEPINE SCREEN, URINE Positive (Negative); CANNABINOID SCREEN, URINE Negative (Negative); COCAINE SCREEN, URINE Negative (Negative); METHADONE SCREEN, URINE Negative (Negative); OPIATE SCREEN, URINE Negative (Negative)
--- NOTE | 2020-06-26 19:40 | NUR ---
PT CALLED THIS RN INTO ROOM. STATES "I CAN'T DO THIS ANYMORE, I WANT TO END MY LIFE". PT REPORTS TELEPSYCH DR HAS NOT CALLED INTO ROOM YET. CLERICAL AND OFFICE SUPPORT WORKERS UPDATED, PT MOVED TO ROOM 40, MONITORING REMOVED, GARAGE DOORS DOWN AND SITTER OUTSIDE ROOM FOR SAFETY. ERP UPDATED, NO NEW ORDERS AT THIS TIME.
--- NOTE | 2020-06-26 20:04 | NUR ---
SAFETY DIET TRAY DELIVERED. TELEPSYCH SPEAKING W/ PT.
--- NOTE | 2020-06-26 20:30 | NUR ---
PER TELEPSYCH DOC RECOMMENDED LEGAL HOLD. PT STILL HAS C/O ANXIETY, MEDICATED PER EMAR. SITTER OUTSIDE ROOM, GARAGE DOORS DOWN FOR SAFETY.
[2020-06-26] MEDS ORDERED: LORazepam 1MG TABLET ONE (20:34)
--- NOTE | 2020-06-26 20:38 | NUR ---
PER [facility], NO AVAILABLE BEDS, NOT ACCEPTIN ANY PTS TONIGHT.
[2020-06-26] MEDS ORDERED: LORazepam 1MG TABLET PO ONE (21:00)
--- NOTE | 2020-06-26 21:07 | NUR ---
PACKET FAXED TO [facility].
--- NOTE | 2020-06-26 21:54 | NUR ---
TELEPHONE CALL FROM [place] PT [facility]. [facility]
--- NOTE | 2020-06-26 22:16 | NUR ---
PER [facility], NEED ERP TO ERP REPORT BEFORE THEY CAN ACCEPT PT. ON PHONE W/ [facility] ERP.
--- NOTE | 2020-06-26 22:24 | NUR ---
RAPID COVID SAMPLE OBTAINED W/O INCIDENT. PT UPDATED ON POC. RESTING ON GURNEY W/ CALL LIGHT IN REACH AND SIDE RAILS UPX2. GARAGE DOORS DOWN AND SITTER OUTSIDE ROOM FOR SAFETY. DENIES FURTHER NEEDS AT THIS TIME.
--- NOTE | 2020-06-26 23:00 | NUR ---
PACKET REFAXED TO [facility] W/ NEGATIVE COVID RESULTS.
--- NOTE | 2020-06-26 23:26 | NUR ---
REPORT GIVEN TO JAIMIE BROWNING FROM [place], STATES WE CAN SEND PT DONNA.
[2020-06-26 23:41] VITALS: BP 110/63
--- NOTE | 2020-06-27 00:04 | NUR ---
BELONGINGS RECEIVED FROM SECURITY AND PLACED W/ PT BELONGINGS TO BE TRANSFERRED W/ PT.
--- NOTE | 2020-06-27 00:05 | NUR ---
WHITE SEALED ENVELOPE PLACED W/ PTS BELONGINGS CONTAINING DRIVERS LICENSE, VISA DEBIT CARD, $20 X4, $10 X1, $5 X5, $1 21. $136 TOTAL.
--- NOTE | 2020-06-27 00:21 | NUR ---
PT RESTING ON GURNEY W/ SIDE RAILS UPX2, GARAGE DOORS DOWN FOR SAFETY, RESP EVEN AND UNLABORED, NADN.
--- NOTE | 2020-06-27 00:30 | NUR ---
PT AMBULATED TO THE BR W/ A STEADY GAIT. RETURNED TO ROOM W/O INCIDENT. PROVIDED W/ CRACKERS AND APPLE SAUCE PER PT REQUEST. PT RESTING ON GURNEY W/ GARAGE DOORS DOWN FOR SAFETY. RESP EVEN AND UNLABORED, DEREK.
--- NOTE | 2020-06-27 01:25 | NUR ---
REPORT GIVEN TO KYLAH. PT AMBULATORY W/ A STEADY GAIT W/ TRANSPORT. RESP EVEN AND UNLABORED, DEREK.
== END 2020-06-27 01:27 ==
LOC: ED 21:21
DX: R45.851 Suicidal ideations (principal); R10.84 Generalized abdominal pain; G89.29 Other chronic pain; Z20.828 Contact with and (suspected) exposure to other viral communicable diseases; I50.9 Heart failure, unspecified; Z91.19 Patient's noncompliance with other medical treatment and regimen; Z90.89 Acquired absence of other organs; Z90.49 Acquired absence of other specified parts of digestive tract
CPT/HCPCS: 36415; 80048; 80299; 80307; 80320; 80329; 82040; 85025; 87635; 99285; G0480

== ENCOUNTER 2020-12-16 20:26 | Emergency (ER) | payer MEDICARE, MEDICAID ==
[~2020-12-16] VITALS: Ht 162.6 cm; Wt 90.2 kg
[~2020-12-16 20:26] MED LIST changes: -FOLI-17 PO; +FOLI1TAB32 PO
--- NOTE | 2020-12-16 22:02 | NUR ---
Periumbilical pain since 2017, reports worse past few weeks. Dc from [facility] recently. pt has scar on lower adb from hernia repoairs and colon cancer. pt has tourrettes. says it has been getting worse lately. pt appears in distress, pain, and stressed. vss. attached to card/bp/sp02 monitors. bed in low position, rails engaged. call light within reach.
[2020-12-16] MEDS ORDERED: OXYC10TA6 PO (22:08)
[2020-12-16] MEDS ORDERED: GABA300C PO (22:08)
[2020-12-16] MEDS ORDERED: CLON1TAB23 PO (22:08)
[2020-12-16 22:13] LABS: BASOPHILS % (AUTO) 0 % (0-1); EOSINOPHILS % (AUTO) 4 % (1-7); LYMPHOCYTES % (AUTO) 25 % (22-44); MEAN CORPUSCULAR HEMOGLOBIN 33.2 pg (27.5-34.5); MEAN CORPUSCULAR HGB CONC 33.4 g/dL (33.2-36.2); MEAN PLATELET VOLUME 7.5 fL (7.4-10.4); MONOCYTES % (AUTO) 7 % (2-9); NEUTROPHILS % (AUTO) 64 % (42-75); PLATELET COUNT 218 x10^3/uL (130-400); RED BLOOD COUNT 4.11 x10^6/uL (4.38-5.82); RED CELL DISTRIBUTION WIDTH 16.5 % (9.4-14.8)
[2020-12-16 22:19] LABS: ALANINE AMINOTRANSFERASE 34 U/L (12-78); ANION GAP 6 mmol/L (5-15); CALCIUM 8.2 mg/dL (8.5-10.1); CHLORIDE 102 mmol/L (98-107); CREATININE 0.96 mg/dL (0.7-1.3)
[2020-12-16 22:22] LABS: ALKALINE PHOSPHATASE 76 U/L (45-117); BILIRUBIN,TOTAL 0.4 mg/dL (0.2-1.0); TOTAL PROTEIN 7.2 g/dL (6.4-8.2)
[2020-12-16 22:29] LABS: MICROSCOPIC NOT IND
[2020-12-16] MEDS ORDERED: METOCLOPRAMIDE 10MG TABLET PO ONE (23:00)
[2020-12-16] MEDS ORDERED: METOCLOPRAMIDE 10MG TABLET ONE (23:07)
[2020-12-16 23:22] VITALS: BP 122/85
--- NOTE | 2020-12-16 23:44 | NUR ---
Patient given VERBAL discharge instructions and they have confirmed that they understand the instructions. Patient ambulatory with steady gait. NAD, all questions answered appropriately, denies additional needs at this time. No personal belongings left in room after discharge. PT LEFT WITHOUT D/C INSTRUCTIONS. INSTRUCTIONS LEFT WITH CHARGE NURSE.
== END 2020-12-16 23:47 | disposition home or self-care (01) ==
LOC: ED 22:51
DX: R10.84 Generalized abdominal pain (principal); K59.00 Constipation, unspecified; R10.33 Periumbilical pain; I50.9 Heart failure, unspecified; Z90.89 Acquired absence of other organs; Z90.49 Acquired absence of other specified parts of digestive tract
CPT/HCPCS: 36415; 74021; 80053; 81003; 83690; 85025; 99284; Q0181